=== PATIENT | female | born 1945 | race Caucasian/White ===

== ENCOUNTER → 2016-08-29 | Outpatient (CLI) | payer OTHER ==
[~2016-08-29] MED LIST: ASPI81TA28 PO; CALC500C70 PO; CRS20 PO; EZET10TA63 PO; LEVO200T6 PO; METF-384 PO
[2016-08-29 11:09] LABS: HEMATOCRIT 40.6 % (37-47); MEAN CELL VOLUME 91.2 fL (80-100); MEAN CORPUSCULAR HEMOGLOBIN 30.6 pg (25-34); MEAN CORPUSCULAR HGB CONC 33.5 g/dl (32-36); MEAN PLATELET VOLUME 10.2 fL (7.4-10.4); PLATELET COUNT 235 K/uL (130-400); RED BLOOD COUNT 4.45 M/uL (4.2-5.4); WHITE BLOOD COUNT 6.92 K/uL (4.8-10.8)
[2016-08-29 11:21] LABS: ESTIMATED AVERAGE GLUCOSE 143 mg/dl; HA1C FLAG Normal (Normal)
[2016-08-29 11:43] LABS: ALB/GLOB RATIO 1.1 (0.9-2); ALT/SGPT 39 U/L (12-78); BLOOD UREA NITROGEN 16 mg/dl (7-18); BUN/CREATININE RATIO 17.4 (10-20); CALCIUM 9.6 mg/dl (8.5-10.1); CARBON DIOXIDE 29 mmol/L (21-32); CHLORIDE 104 mmol/L (98-107); CREATININE 0.89 mg/dl (0.60-1.20); GLUCOSE 105 mg/dl (70-99); POTASSIUM 3.9 mmol/L (3.5-5.1); SODIUM 141 mmol/L (136-145); TRIGLYCERIDES 217 mg/dl (0-150); VERY LOW DENSITY LIPOPROT CALC 43 mg/dl
[2016-08-29 11:52] LABS: ALKALINE PHOSPHATASE 52 U/L (45-117); AST/SGOT 32 U/L (15-37); CHOLESTEROL 140 mg/dl (0-200); CHOLESTEROL/HDL RATIO 2.3; HDL CHOLESTEROL 62 mg/dl; LDL CHOLESTEROL CALCULATED 35 mg/dl
== END | disposition home or self-care (01) ==
LOC: C.LAB 10:25
PROVIDERS: ATTEND Family Medicine
DX: E78.00 Pure hypercholesterolemia, unspecified (principal); I10 Essential (primary) hypertension; E11.9 Type 2 diabetes mellitus without complications; E03.9 Hypothyroidism, unspecified

== ENCOUNTER → 2016-09-21 | Outpatient (CLI) | payer OTHER ==
--- NOTE | 2016-09-26 07:32 | CODING QUERY MEDICAL NECESSITY ---
SUPPORTING DIAGNOSIS NEEDED A supporting diagnosis is required for the test/procedure performed on this patient in order for us to be reimbursed by the patient's insurance. Please provide a supporting diagnosis for the following test/procedure listed below next to the test name along with your signature. *If there is no additional diagnosis for this patient that would support the following test/procedure please document that below next to the test/procedure. Test(s)/Procedure(s) that require a supporting diagnosis: * DXA BONE DENSITY DIAGNOSIS: * DOS: 09/21/16 Provider Signature: Date: Thank you Shea Roberto Health Information Management Once completed, please kindly fax back to [phone] For questions please call [phone]
== END | disposition home or self-care (01) ==
LOC: C.MAMM 09:31
PROVIDERS: ATTEND Family Medicine
DX: Z13.820 Encounter for screening for osteoporosis (principal); M85.851 Other specified disorders of bone density and structure, right thigh

== ENCOUNTER → 2017-04-03 | Outpatient (CLI) | payer OTHER ==
[2017-04-03 10:55] LABS: ESTIMATED AVERAGE GLUCOSE 157 mg/dl; HA1C FLAG Normal (Normal)
[2017-04-03 10:58] LABS: ALT/SGPT 61 U/L (12-78); BLOOD UREA NITROGEN 18 mg/dl (7-18); BUN/CREATININE RATIO 20.7 (10-20); CALCIUM 9.9 mg/dl (8.5-10.1); CARBON DIOXIDE 31 mmol/L (21-32); CHLORIDE 106 mmol/L (98-107); CREATININE 0.85 mg/dl (0.60-1.20); GLUCOSE 111 mg/dl (70-99); POTASSIUM 3.9 mmol/L (3.5-5.1); SODIUM 140 mmol/L (136-145)
[2017-04-03 11:09] LABS: CHOLESTEROL 115 mg/dl (0-200); CHOLESTEROL/HDL RATIO 2.7; HDL CHOLESTEROL 43 mg/dl; LDL CHOLESTEROL CALCULATED 36 mg/dl; THYROID STIMULATING HORMONE 0.145 uIu/ml (0.300-4.500); TRIGLYCERIDES 182 mg/dl (0-150); VERY LOW DENSITY LIPOPROT CALC 36 mg/dl
== END | disposition home or self-care (01) ==
LOC: C.LAB 09:45
PROVIDERS: ATTEND Family Medicine
DX: E78.00 Pure hypercholesterolemia, unspecified (principal); I10 Essential (primary) hypertension; E11.9 Type 2 diabetes mellitus without complications; E03.9 Hypothyroidism, unspecified

== ENCOUNTER → 2017-04-30 | Outpatient (CLI) | payer OTHER ==
--- NOTE | 2017-04-30 13:10 | MAMMOGRAPHY REPORT ---
BILATERAL DIGITAL DIAGNOSTIC MAMMOGRAM TOMOSYNTHESIS WITH CAD AND TARGETED LEFT ULTRASOUND: 04/30/2017 CLINICAL HISTORY: 71-year-old woman presents for bilateral mammography. She has also been experienci ng sensation in the left breast beginning February or March 2017. It is an occasional twinge or jabbing sensation in the upper outer anterior left breast. No palpable lump. No persistent nipple discharg e. Patient consulted with Dr. Herndon after her benign biopsies and left nipple discharge which she has not had since prior to the biopsies. TECHNIQUE: Bilateral breast tomosynthesis in addition to standard 2D mammography was performed. Curre nt study was also evaluated with a Computer Aided Detection (CAD) system. COMPARISON: Comparison is made to exams dated: 03/21/2016 mammogram, 03/21/2016 ultrasound biopsy, 016 ultrasound, 04/20/2015 mammogram, 03/15/2016 mammogram, and 04/16/2014 mammogram - [facility]. BREAST COMPOSITION: There are scattered areas of fibroglandular density in both breasts. FINDINGS: A square shaped pain marker overlies the upper outer anterior left breast, denoting the abn ormal sensation pointed out by the patient. There are 2 stable metallic biopsy markers in the left b reast. The wing-shaped biopsy marker located in the approximate 3:00 anterior left breast is in the area near the pain marker, and could possibly be the underlying cause of the patient's abnormal sensa tion, as occasionally patients can experience pain months to years after biopsy. However, there is n o evidence of a new suspicious mass, unexpected area of architectural distortion, developing asymmetr y or suspicious microcalcifications in either breast. There is a stable benign-appearing subcentimet er mass in the right upper outer quadrant. Targeted ultrasound was performed in the area of abnormal sensation pointed out by the patient within the 1:00 periareolar left breast. Sonographically normal tissue is seen without a suspicious solid or cystic mass. IMPRESSION: ACR BI-RADS CATEGORY 2: BENIGN, TARGETED ULTRASOUND ACR BI-RADS CATEGORY 2: BENIGN 1. There is no suspicious mammographic or targeted sonographic abnormality in the area of abnormal s ensation within the left 1:00 breast, which was pointed out by the patient. The wing-shaped biopsy m arker clip is located somewhat near this area of pain and it is unclear if the prior biopsy in the 3: 00 breast could still be causing pain one year later. Nevertheless, continued monitoring and clinica l follow-up is recommended. Otherwise would recommend routine screening in 1 year. 2. There are otherwise stable post biopsy changes and stable mammographic appearance of the left raji ast. Given that the patient has not had any other episodes of nipple discharge since prior to the bi opsies 1 year ago, that finding is most likely benign. However, continued clinical follow-up is lilian mmended and if the patient has episodes of nipple discharge again, repeat surgical consultation may b e needed. 3. Stable mammographic appearance of the right breast, without mammographic evidence of malignancy. Recommend routine mammography in one year. These results and recommendations were discussed with the patient at the time of the exam. Approximately 10% of breast cancers are not detected with mammography. A negative mammographic report should not delay biopsy if a clinically suggestive mass is present. Evelyn Man M.D. ay/:04/30/2017 11:26:37 Band Tier: Rosetta HAWKINS)(Juanpablo), [facility] letter sent: Normal 1/2 BI-RADS Code: ACR BI-RADS Category 2: Benign Ultrasound BI-RADS: ACR BI-RADS Category 2: Benign
== END | disposition home or self-care (01) ==
LOC: C.MAMM 10:07
PROVIDERS: ATTEND Family Medicine
DX: N64.4 Mastodynia (principal)

== ENCOUNTER → 2017-09-20 | Outpatient (CLI) | payer OTHER ==
[2017-09-20 12:26] LABS: HEMOGLOBIN A1C 6.8 % (4.5-5.6)
== END | disposition home or self-care (01) ==
LOC: C.LAB 10:11
PROVIDERS: ATTEND Family Medicine
DX: E78.00 Pure hypercholesterolemia, unspecified (principal); I10 Essential (primary) hypertension; E11.9 Type 2 diabetes mellitus without complications; E03.9 Hypothyroidism, unspecified

== ENCOUNTER → 2017-11-28 | Outpatient (CLI) | payer OTHER ==
[2017-11-28 13:14] LABS: BASO % 0.6 %; BASO ABS # 0.04 K/uL (0-0.2); EOS ABS # 0.72 K/uL (0-0.5); HEMATOCRIT 36.2 % (37-47); HEMOGLOBIN 12.1 g/dL (12.0-16.0); IG# 0.01 K/uL (0.00-0.02); LYMPH % 40.9 %; LYMPH ABS # 2.67 K/uL (1.2-3.4); MEAN CELL VOLUME 91.4 fL (80-100); MEAN CORPUSCULAR HEMOGLOBIN 30.6 pg (25-34); MEAN CORPUSCULAR HGB CONC 33.4 g/dl (32-36); MEAN PLATELET VOLUME 10.4 fL (7.4-10.4); MONO % 8.9 %; MONO ABS # 0.58 K/uL (0.11-0.59); NEUT % 38.4 %; NEUT ABS # 2.51 K/uL (1.4-6.5); PLATELET COUNT 254 K/uL (130-400); RED CELL DISTRIBUTION WIDTH CV 13.5 % (11.5-14.5); RED CELL DISTRIBUTION WIDTH SD 44.8 fL (36.4-46.3); WHITE BLOOD COUNT 6.53 K/uL (4.8-10.8)
[2017-11-28 13:44] LABS: ALBUMIN 3.7 gm/dl (3.4-5.0); ALT/SGPT 24 U/L (12-78); AST/SGOT 21 U/L (15-37); BLOOD UREA NITROGEN 19 mg/dl (7-18); CALCIUM 9.7 mg/dl (8.5-10.1); CARBON DIOXIDE 27 mmol/L (21-32); CREATININE 0.92 mg/dl (0.60-1.20); GLUCOSE 98 mg/dl (70-99); POTASSIUM 3.6 mmol/L (3.5-5.1); SODIUM 139 mmol/L (136-145)
[2017-11-28 13:54] LABS: ALKALINE PHOSPHATASE 47 U/L (45-117); TOTAL PROTEIN 6.9 gm/dl (6.4-8.2)
== END | disposition home or self-care (01) ==
LOC: C.LAB1850 12:22
PROVIDERS: ATTEND Nurse Practitioner Family
DX: R07.89 Other chest pain (principal)

== ENCOUNTER → 2018-03-27 | Outpatient (CLI) | payer OTHER ==
[2018-03-27 10:47] LABS: CREATININE RANDOM URINE 83.1 mg/dl
[2018-03-27 10:56] LABS: ALT/SGPT 25 U/L (12-78); BLOOD UREA NITROGEN 18 mg/dl (7-18); CALCIUM 9.5 mg/dl (8.5-10.1); CARBON DIOXIDE 28 mmol/L (21-32); CHOLESTEROL 121 mg/dl (0-200); CREATININE 0.99 mg/dl (0.60-1.20); GLUCOSE 106 mg/dl (70-99); LDL CHOLESTEROL CALCULATED 32 mg/dl; POTASSIUM 3.8 mmol/L (3.5-5.1); SODIUM 139 mmol/L (136-145)
== END | disposition home or self-care (01) ==
LOC: C.LAB 08:57
PROVIDERS: ATTEND Family Medicine
DX: I10 Essential (primary) hypertension (principal); E11.9 Type 2 diabetes mellitus without complications; E03.9 Hypothyroidism, unspecified

== ENCOUNTER 2019-12-29 11:43 | Observation (INO) ==
[2019-12-29 12:27] LABS: Basophils # (auto) 0.02 K/uL (0-0.2); Basophils % (auto) 0.3 %; Eosinophils % (auto) 7.6 %; Hematocrit (blood only) 40.9 % (37-47); Hemoglobin 13.3 g/dL (12.0-16.0); Immature Granulocytes # (auto) 0.02 K/uL (0.00-0.02); Immature Granulocytes % (auto) 0.3 %; Mean Corpuscular Hemoglobin 29.5 pg (25-34); Mean Corpuscular Hgb Conc 32.5 g/dL (32-36); Mean Corpuscular Volume 90.7 fL (80-100); Mean Platelet Volume 10.5 fL (7.4-10.4); Monocytes # (auto) 0.84 K/uL (0.11-0.59); Monocytes % (auto) 10.6 %; Neutrophils # (auto) 3.41 K/uL (1.4-6.5); Neutrophils % (auto) 43.2 %; Platelet Count 293 K/uL (130-400); RDW Coefficient of Variation 14.3 % (11.5-14.5); RDW Standard Deviation 47.5 fL (36.4-46.3); Red Blood Count 4.51 M/uL (4.2-5.4); White Blood Count 7.89 K/uL (4.8-10.8)
[2019-12-29] MEDS ORDERED: ASPIRIN CHEW 324 MG PO STA (12:30)
[2019-12-29 12:34] LABS: Albumin Level 3.7 gm/dl (3.4-5.0); Aspartate Aminotransferase 33 U/L (15-37); BUN Creatinine Ratio 17.3 (10-20); Blood Urea Nitrogen 17 mg/dl (7-18); Calcium 10.4 mg/dl (8.5-10.1); Carbon Dioxide 27 mmol/L (21-32); Chloride 104 mmol/L (98-107); Creatinine Clr Calc Pharmacy 54.8 ml/min; Est GFR (Non-African American) 58.7; Glucose 118 mg/dl (70-99); Potassium 3.7 mmol/L (3.5-5.1); Sodium 140 mmol/L (136-145)
[2019-12-29 12:35] LABS: Partial Thromboplastin Ratio 0.9; Partial Thromboplastin Time 24.4 Seconds (21.0-31.0); Prothrombin Time 10.8 Seconds (9.0-12.0)
--- NOTE | 2019-12-29 12:36 | Emergency Department Note ---
History of Present Illness General Chief complaint: Chest Pain Stated complaint: CHEST PAIN Time Seen by Provider: 12/29/19 12:15 Source: patient Mode of arrival: ambulatory Limitations: no limitations History of Present Illness This patient comes in after having intermittent chest pain since 5:00 in the morning it woke her up. Is been a low level about 1 or 2 out of 10 and she describes as a twinge mostly in her left side it did seem to move to the central chest. There is no radiation to the arm neck or back. No diaphoresis or nausea or shortness of breath. It is not pleuritic. She is had no injury. She was moving some stuff over the weekend but had no fall or trauma. It is not worse with movement. She has had no known COVID exposure no fever or cough with exception of some chronic sinus issues that she has been dealing with for over 6 months. No history of any similar chest pain. No pain or swelling her legs. No history of blood clots. No nausea vomiting or diarrhea. No blood or melena stool. She does take a baby aspirin and took 81 mg today. She is never had a cardiac work-up Home Medications Home Medications Medication Instructions Recorded Confirmed Type aspirin 81 mg tablet,delayed 81 mg PO QAM 04/21/19 12/29/19 History release docusate sodium 100 mg PO HS 04/23/19 12/29/19 History ezetimibe 10 mg tablet 10 mg PO QAM #90 tab 07/17/19 12/29/19 Rx metformin 1,000 mg tablet 1,000 mg PO BID 90 Days #180 tab 07/17/19 12/29/19 Rx rosuvastatin 20 mg tablet 20 mg PO QAM #90 tab 07/17/19 12/29/19 Rx clobetasol 0.05 % topical ointment 1 appln TOP DAILY PRN #15 gm 07/18/19 12/29/19 Rx levothyroxine 150 mcg tablet 75 - 150 mcg PO DAILY #72 tab 10/10/19 12/29/19 Rx amlodipine 5 mg PO QAM 12/29/19 12/29/19 History hydrochlorothiazide 25 mg PO QAM 12/29/19 12/29/19 History Allergies Allergy/AdvReac Type Severity Reaction Status Date / Time Sulfa (Sulfonamide Allergy Severe rash that Verified 12/29/19 15:30 Antibiotics) went into throat Past Med/Surg History Medical History Chronic pain Diabetes mellitus, type 2 History of colon polyps Hypercholesterolemia Hyperlipidemia Hypertension Hypothyroidism Obstructive sleep apnea Osteoarthritis Rosacea Urinary incontinence Surgical History History of colonoscopy History of left breast biopsy benign History of open reduction and internal fixation (ORIF) procedure left leg/ankle--hardware in place History of tonsillectomy History of wisdom tooth extraction Family History Mother Family hx of colon cancer Colorectal cancer Aunt Family hx of colon cancer Sister Breast cancer Father Myocardial infarction Other No family history of adverse response to anesthesia Denies family history of Ovarian cancer Prostate cancer Social History (Updated 12/29/19 @ 14:37 by Aster Nieto DO) Preferred Language: Monegasque Communication Ability: Effective Shipping Technician Required: No Beliefs That Will Affect Care: Hindu Hindu Beliefs: Nondenominational Current Living Situation: Alone Other Information That Helps Us Care for You: No Feels Safe at Home: Yes Safety Concerns: Feels Safe At This Time Smoking Status: Never smoker Second Hand Exposure: Yes (father smoked/1st smoked) ; Hx Alcohol Use: Yes Alcohol type: wine Alcohol Intake Frequency Comment: socially, once a month or less Hx Substance Use: No Review of Systems A total of 10 systems reviewed and were otherwise negative Physical Exam Vital Signs Vital Signs - 24 hr 12/29/19 11:48 12/29/19 13:27 12/29/19 14:02 Temperature 36.7 C Temperature Source Oral Pulse Rate 86 Pulse Rate [Apical] 77 77 Pulse Rhythm [Apical] Regular Regular Respiratory Rate 20 18 17 Respiratory Effort / Characteristics Non-Labored Spontaneous Non-Labored Spontaneous Non-Labored Spontaneous Respiratory Depth Normal Normal Normal Respiratory Pattern Regular Regular Regular Blood Pressure 190/90 H Blood Pressure [Right Arm] 138/102 H 154/96 H Blood Pressure Mean 123 Blood Pressure Mean [Right Arm] 114 115 Pulse Oximetry 96 96 95 Oxygen Delivery Method Room Air Room Air Room Air Sepsis Recent Fever Within 48 Hours No Sepsis Action Taken by Nursing No Action Required General: Well developed well nourished [id number]-[id number] older female who appears in no acute distress, breathing comfortably on room air. Normal speech HEENT: Normal cephalic atraumatic. Pupils are equal round and reactive to light. Extraocular movements are intact. Oropharynx is pink with moist mucous membranes. No swelling of the mouth lips or tongue. Neck: Supple with a midline trachea. No meningeal signs or stiffness, no JVD or bruits. No Stridor. Chest: Clear to auscultation bilaterally. No wheezes or rhonchi. No increased work of breathing. Not reproducibly tender Heart: Regular rate and rhythm without murmurs or gallops. Abdomen: Soft nontender, nondistended without rebound guarding or rigidity. Extremities: No cyanosis clubbing or edema. No calf tenderness or assymetry Spine/Back. Non tender to palpation. No CVA tenderness Skin: Good turgor without rashes. Neurologic exam: Cranial nerves two through 12 are intact. Motor and sensation are intact and symmetrical throughout. Course Administered Medications Insulin Aspart (Novolog Flexpen) 0 units SC ACHS KYLER Stop: 01/28/20 16:29 Last Admin: 12/29/19 17:11 Dose: 4 units Documented by: [id number] Cosigned by: [id number] Discontinued Medications Aspirin (Aspirin) 324 mg PO NOW STA Stop: 12/29/19 12:31 Last Admin: 12/29/19 12:33 Dose: 324 mg Documented by: [id number] Medical Decision Making Differential Diagnosis Acute coronary syndrome, musculoskeletal, arrhythmia, PE, aortic pathology, electrolyte or metabolic abnormality, anxiety, CHF, infection Medical Records Attestation: I reviewed the patient's medical records. Home Medications Current Medication List: was personally reviewed by me Laboratory Data Attestation: I reviewed the patient's lab results. Result diagrams: 12/29/19 12:00 12/29/19 12:00 Lab Results 12/29/19 12/29/19 12/29/19 Range/Units 12:00 12:00 12:00 WBC 7.89 (4.8-10.8) K/uL RBC 4.51 (4.2-5.4) M/uL Hgb 13.3 (12.0-16.0) g/dL Hct 40.9 (37-47) % MCV 90.7 (80-100) fL MCH 29.5 (25-34) pg MCHC 32.5 (32-36) g/dL RDW Std Deviation 47.5 H (36.4-46.3) fL RDW Coeff of Ina 14.3 (11.5-14.5) % Plt Count 293 (130-400) K/uL MPV 10.5 H (7.4-10.4) fL Immature Gran % (Auto) 0.3 % Neut % (Auto) 43.2 % Lymph % (Auto) 38.0 % Cecil % (Auto) 10.6 % Eos % (Auto) 7.6 % Baso % (Auto) 0.3 % Immature Gran # (Auto) 0.02 (0.00-0.02) K/uL Neut # (Auto) 3.41 (1.4-6.5) K/uL Lymph # (Auto) 3.00 (1.2-3.4) K/uL Cecil # (Auto) 0.84 H (0.11-0.59) K/uL Eos # (Auto) 0.60 H (0-0.5) K/uL Baso # (Auto) 0.02 (0-0.2) K/uL PT 10.8 (9.0-12.0) Seconds INR 1.0 (0.9-1.1) APTT 24.4 (21.0-31.0) Seconds PTT Ratio 0.9 Sodium 140 (136-145) mmol/L Potassium 3.7 (3.5-5.1) mmol/L Chloride 104 (98-107) mmol/L Carbon Dioxide 27 (21-32) mmol/L Anion Gap 9.0 (3-11) BUN 17 (7-18) mg/dl Creatinine 0.96 (0.6-1.2) mg/dl Est Cr Clr Drug Dosing 54.8 ml/min Est GFR ( Amer) 68.0 Est GFR (Non-Af Amer) 58.7 BUN/Creatinine Ratio 17.3 (10-20) Glucose 118 H (70-99) mg/dl Calcium 10.4 H (8.5-10.1) mg/dl Total Bilirubin 0.4 (0.2-1) mg/dl AST 33 (15-37) U/L ALT 37 (12-78) U/L Alkaline Phosphatase 72 (45-117) U/L Troponin I < 0.015 (0-0.045) ng/ml Total Protein 7.6 (6.4-8.2) gm/dl Albumin 3.7 (3.4-5.0) gm/dl Globulin 3.9 (2.5-4.0) gm/dl Albumin/Globulin Ratio 0.9 (0.9-2) Imaging Data Radiologist's Impression: Chest x-ray:No acute cardiopulmonary findings. ECG Data Attestation: I personally reviewed and interpreted this ECG as follows: Indication: + chest pain Rate (beats per minute): 86 Rhythm: + normal sinus ECG Intervals/blocks: + Normal QRS, + Normal QT and + Normal SC ECG Eden: + Normal ECG Findings: no PACs and no PVCs Comparison ECG Date: from (11/01/06) Change: no significant change Blood Pressure Blood Pressure Findings: Elevated blood pressure Blood Pressure Disposition: elevated BP felt to be situational MDM Narrative This patient comes in as scribed above she has had intermittent low-grade chest pain since this morning. She was placed on a electronic device monitor in room C8. She does have several cardiac risk factors, namely diabetes, hypertension, hypercholesteremia, family history. She has never had a cardiac work-up or cardiac problems personally. She is pain-free initially when I saw her. She did take a baby aspirin earlier today I did order a full-strength aspirin. Her father did have an aneurysm her symptoms do not sound typical for aneurysm thus far. An extensive cardiac work-up was ordered. Her initial EKG does not show anything to suggest acute coronary syndrome or significant arrhythmia. She was reassessed frequently. She remained stable. Her troponin was negative. Chest x-ray was unremarkable. She has no significant electrolyte or metabolic abnormalities. She has nothing to suggest liver, gallbladder, or pancreas disease. I do think she should be observed in the hospital for further cardiac work-up and to rule out acute coronary syndrome. I did consult the hospitalist for these measures Continuous cardiac monitoring: Due to her chief complaint of chest pain an order was placed for continuous cardiac monitoring. The patient was noted to be in normal sinus rhythm with a rate of 86 upon my evaluation. Impression & Plan Chest pain Discharge Plan Visit Data *Final* Discharge Date/Time: 12/29/19 15:15 Chief Complaint: Chest Pain Stated Complaint: CHEST PAIN ED Provider: Irving Piña Discharge Problem: Chest pain Patient Disposition: Admitted As Inpatient Discharge Instructions Interventions: ED Discharge Assessment Last Done: 12/29/19 15:15 Discharge Problem: Chest pain Qualifiers: Chest pain type: precordial pain Qualified Code(s): R07.2 - Precordial pain
[2019-12-29 12:38] LABS: Alanine Aminotransferase 37 U/L (12-78); Albumin Globulin Ratio 0.9 (0.9-2); Alkaline Phosphatase 72 U/L (45-117); Bilirubin,Total 0.4 mg/dl (0.2-1); Globulin 3.9 gm/dl (2.5-4.0); Total Protein 7.6 gm/dl (6.4-8.2); Troponin I < 0.015 ng/ml (0-0.045)
--- NOTE | 2019-12-29 12:41 | XRay Report ---
XR chest 1V portable CLINICAL HISTORY: Chest pain. COMPARISON STUDY: Chest radiograph May 27, 2019. FINDINGS: Lung volumes are normal. Minimal left basilar opacity favors atelectasis. There is no pneum othorax or pleural effusion. Cardiac size is normal. Mediastinal contours are normal. There is no mj dence for pulmonary edema. IMPRESSION: No acute cardiopulmonary findings. ACT 112: Negative or not required by law. Electronically signed by: Harinder Sawyer M.D. 12/29/2019 12:40 PM
--- NOTE | 2019-12-29 14:45 | History & Physical Report ---
Date of Service December 29, 2019 Assessment & Plan (1) Chest pain: Uncertain etiology, r/o ACS vs GI EKG WNL CXR: neg for acute Trop neg x1, serials pending GI cocktail PRN If trops neg, t/c stress ECHO in AM Lipids pending CBC, PRP WNL GI cocktail PRN (2) Hypercholesterolemia: continue home meds Lipids pending (3) Persistent cough: continue home meds (4) Hypothyroidism: continue home meds (5) Hypertension: continue home meds (6) Diabetes mellitus: Holding metformin in case of need for cath SSI PRN A1c pending, last was 7.1 07/14/19 (7) GERD (gastroesophageal reflux disease): continue home meds (8) Obstructive sleep apnea: States that this is not a current dx Pt had testing done due to snoring when she had a "bad cold", but it was neg (9) DVT prophylaxis: Ambulation given likely short duration of admission History of Present Illness Chief Complaint: 74 y/o F c/o chest pain. Pt states she was up last night watching her usual Sunday night television shows until around 1am, which is not atypical for her. She states she went to bed and felt fine at that time. She was sleeping soundly when she was woken with L sided chest pain under her breast around 5a. It felt more pulsating and irritating in nature. It would come and go. She tried to go back to sleep, but this pain continued to come and go, so she decided to just go ahead and get up for the day. This pain continued to come and go while she was reading her paper, and then around 10:45, the pain moved to mid-sternum. This made her more concerned, so she came to the ED for further eval. Pt had no other sx with this. Pt denies fever, SOB, abd pain, n/v/c/d, LE pain or swelling. She has never had chest pain before. Pt states that yesterday was a usual day for her. She did all of her usual activities without any issue. She states that she does have heartburn issues. She used to take ranitidine, but this was changed to famotidine in September due to the new risk associated with ranitidine. She feels that this medication was just as effective as the prior. She had dinner around 7:30, ham, sweet potatoes. She states she did have chips and dip and chocolate milk around 9:30-10:00. Chips do sometimes cause her heartburn, so she was sure to take her GERD medication prior to eating them. She did not notice any issues prior to bed. Pt states that she has been working with several doctors since April for some sort of cold/sinus issues. She started working with pul this spring after nothing was resolving her sinus headaches. She was advised to take sudafed Q12hr PRN for this. She did have a mild sinus headache this AM and did take the sudafed. She has a referral for ENT, but has not had that appt yet. Pt took all of her AM meds today with the exception of metformin. She did not take this because she had not eaten yet and if she takes it and does not eat, she gets nauseated. Primary Care Provider: Brianda Obrien MD Allergies Allergy/AdvReac Type Severity Reaction Status Date / Time Sulfa (Sulfonamide Allergy Severe rash that Verified 12/29/19 14:28 Antibiotics) went into throat Home Medications Home Medications Medication Instructions Recorded Confirmed Type aspirin 81 mg tablet,delayed 81 mg PO QAM 04/21/19 10/23/19 History release ranitidine HCl 150 mg tablet 150 mg PO BID PRN 04/21/19 10/23/19 History docusate sodium 100 mg PO HS 04/23/19 10/23/19 History promethazine 6.25 mg-codeine 10 5 ml PO Q6H PRN #120 ml 05/27/19 10/23/19 Rx mg/5 mL syrup chlorpheniramine maleate 4 mg 4 mg PO Q12H PRN #60 tab 06/10/19 10/23/19 Rx tablet fluticasone propionate 50 2 sprays INTNAS DAILY #15.8 gm 06/10/19 10/23/19 Rx mcg/actuation nasal spray,suspension pseudoephedrine HCl 120 mg 120 mg PO Q12H #60 tab 06/10/19 10/23/19 Rx tablet,extended release ezetimibe 10 mg tablet 10 mg PO QAM #90 tab 07/17/19 10/23/19 Rx hydrochlorothiazide 25 mg tablet 25 mg PO DAILY #90 tab 07/17/19 10/23/19 Rx metformin 1,000 mg tablet 1,000 mg PO BID 90 Days #180 tab 07/17/19 10/23/19 Rx rosuvastatin 20 mg tablet 20 mg PO QAM #90 tab 07/17/19 10/23/19 Rx clobetasol 0.05 % topical ointment 1 appln TOP DAILY PRN #15 gm 07/18/19 10/23/19 Rx amlodipine 5 mg tablet 5 mg PO DAILY #90 tab 08/15/19 10/23/19 Rx levothyroxine 150 mcg tablet 75 - 150 mcg PO DAILY #72 tab 10/10/19 10/23/19 Rx Past Med/Surg History Medical History Chronic pain Diabetes mellitus, type 2 History of colon polyps Hypercholesterolemia Hyperlipidemia Hypertension Hypothyroidism Obstructive sleep apnea Osteoarthritis Rosacea Urinary incontinence Surgical History History of colonoscopy History of left breast biopsy benign History of open reduction and internal fixation (ORIF) procedure left leg/ankle--hardware in place History of tonsillectomy History of wisdom tooth extraction Family History Mother Family hx of colon cancer Colorectal cancer Aunt Family hx of colon cancer Sister Breast cancer Father Myocardial infarction Other No family history of adverse response to anesthesia Denies family history of Ovarian cancer Prostate cancer Social History (Updated 12/29/19 @ 14:37 by Aster Nieto DO) Preferred Language: Macedonian Communication Ability: Effective 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 Beliefs That Will Affect Care: None Current Living Situation: Alone Feels Safe at Home: Yes Smoking Status: Never smoker Second Hand Exposure: Yes (father smoked/1st smoked) ; Hx Alcohol Use: Yes Alcohol type: beer, wine and hard liquor Alcohol Intake Frequency Comment: socially, once a month or less Hx Substance Use: No Review of Systems Review of Systems: Pertinent positives and negatives reviewed in HPI--all others negative Physical Exam Constitutional: WD/WN, vitals as above Eyes: normal visual palencia by confrontation and + anicteric sclerae Neck: normal visual inspection and trachea midline Respiratory: normal respiratory effort, lungs clear to auscultation Cardiovascular: Rate/Rhythm: regular rate and regular rhythm Gastrointestinal (Abdomen): Inspection/Auscultation: + abdomen distended Percussion/Palpation: abdomen soft; abdomen nontender Musculoskeletal: Head/Neck/Chest: normocephalic and head atraumatic negative for edema, peripheral pulses intact Skin: no rashes, warm and dry Neurologic: awake; not confused Speech / Cognition: normal speech Psychiatric: A+Ox3, euthymic affect Results & Data Results & Data ([facility]) Vital Signs (Past 12 Hours) Vital Signs Temp Pulse Pulse Resp BP BP Pulse Ox 12/29/19 14:02 77 17 154/96 H 95 12/29/19 13:27 77 18 138/102 H 96 12/29/19 11:48 36.7 C 86 20 190/90 H 96 Diagnostic Findings CXR: neg for acute ECG Rhythm: normal sinus Code Status & VTE Plan Code Status Full code VTE Prophylaxis Plan VTE Prophylaxis will be ordered: Yes PG Care Time/CCT Total # of Minutes Spent Total Time Spent with Patient: Total time spent is greater than 50% in coordination of care (as documented) at patient's floor/unit and/or counseling patient: Coding Level of Care Code 03807 OBS Care - Level 3 Diagnoses Chest pain R07.2 Chest pain type: precordial pain Hypercholesterolemia E78.00 Persistent cough R05 Hypothyroidism E03.9 Hypertension I10 Diabetes mellitus E11.9 GERD (gastroesophageal reflux disease) K21.9 Obstructive sleep apnea G47.33 DVT prophylaxis Z29.9 (1) Chest pain Chest pain type: precordial pain Qualified Code(s): R07.2 - Precordial pain
[2019-12-29] MEDS ORDERED: GLUCOSE 40% GEL 15 GM TUBE PO PRN (16:20)
[2019-12-29] MEDS ORDERED: DEXTROSE 50% 50 ML SYRINGE IV PRN (16:20)
[2019-12-29] MEDS ORDERED: ALUMINUM/MAGNESIUM SUSP 18 ML, LIDOCAINE HCL VISCOUS 2% 6 ML, BARCODE IDENTIFIER 1 EA PO PRN (16:20)
[2019-12-29] MEDS ORDERED: GLUCAGON FOR INJ 1 MG VIAL SQ PRN (16:20)
[2019-12-29] MEDS ORDERED: MAGNESIUM HYDROXIDE SUSP 30 ML UDC PO PRN (16:20)
[2019-12-29] MEDS ORDERED: CLOBETASOL PROPIONATE 0.05% OINT 15 GM TUBE EXT PRN (16:20)
[2019-12-29] MEDS ORDERED: ONDANSETRON INJ 2 MG/ML 2 ML VIAL IV PRN (16:20)
[2019-12-29] MEDS ORDERED: PROMETHAZINE CODEINE PO PRN (16:20)
[2019-12-29] MEDS ORDERED: ACETAMINOPHEN 325 MG TAB PO PRN (16:20)
[2019-12-29] MEDS ORDERED: CARBOHYDRATES FOR HYPOGLYCEMIA PO PRN (16:20)
[2019-12-29] MEDS ORDERED: GLUCOSE 10 TABS/TUBE PO PRN (16:20)
[2019-12-29] MEDS ORDERED: PSEUDOEPHEDRINE HCL 30 MG TAB PO PRN (16:20)
--- NOTE | 2019-12-29 17:00 | Electrocardiogram Report ---
Test Reason : Blood Pressure : / mmHG Vent. Rate : 086 BPM Atrial Rate : 086 BPM P-R Int : 158 ms QRS Dur : 084 ms QT Int : 368 ms P-R-T Axes : 053 009 039 degrees QTc Int : 440 ms Normal sinus rhythm Normal ECG When compared with ECG of 01-NOV-2006 15:46, Vent. rate has increased BY 30 BPM Confirmed by Dimitry Buchanan ([id number]) on 12/29/2019 4:59:46 PM Referred By: Confirmed By:Miguel Buchanan
[2019-12-29] MEDS: INSULIN ASPART 100 UNITS/ML 3 ML PEN SC SCH ×2 (17:11→20:42)
[2019-12-29 18:35] LABS: Chol HDL Ratio 2; Cholesterol 125 mg/dl (0-200); HDL Cholesterol 52 mg/dl; LDL Cholesterol Calculated 36 mg/dl; Triglycerides 185 mg/dl (0-150); Troponin I < 0.015 ng/ml (0-0.045); VLDL Cholesterol 37 mg/dl
[2019-12-29] MEDS ORDERED: FAMOTIDINE 20 MG TAB PO SCH (21:00)
[2019-12-29] MEDS ORDERED: DOCUSATE SODIUM 100 MG CAP PO SCH (21:00)
[2019-12-30] MEDS ORDERED: LEVOTHYROXINE SODIUM 75 MCG TABLET PO SCH (06:30)
[2019-12-30 07:26] LABS: Estimated Average Glucose 148 mg/dl; Hemoglobin A1C 6.8 % (4.5-5.6)
[2019-12-30] MEDS: INSULIN ASPART 100 UNITS/ML 3 ML PEN SC SCH ×2 (08:20→12:23)
[2019-12-30] MEDS ORDERED: AMLODIPINE BESYLATE 5 MG TAB PO SCH (09:00)
[2019-12-30] MEDS ORDERED: hydroCHLOROthiazide 25 MG TAB PO SCH (09:00)
[2019-12-30] MEDS ORDERED: ASPIRIN 81 MG ECTAB PO SCH (09:00)
[2019-12-30] MEDS ORDERED: EZETIMIBE 10 MG TABLET PO SCH (09:00)
[2019-12-30] MEDS ORDERED: ROSUVASTATIN CALCIUM 20 MG TAB PO SCH (09:00)
[2019-12-30] MEDS ORDERED: FLUTICASONE PROPIONATE NA SPR 16 GM BTL NAE SCH (09:00)
--- NOTE | 2019-12-30 11:50 | XCELERA ---
[id number]
--- NOTE | 2019-12-30 14:07 | Discharge Summary ---
Date of Service December 30, 2019 Principal Diagnosis Pt is doing well. She has had no further chest pain since STEAMBLASTER. Pt denies fever, SOB, abd pain, n/v/c/d, LE pain or swelling. Tolerating PO without issue. Discharge Exam Constitutional WD/WN, vitals as above Eyes normal visual palencia by confrontation and + anicteric sclerae Neck normal visual inspection and trachea midline Respiratory normal respiratory effort, lungs clear to auscultation Cardiovascular Rate/Rhythm: regular rate and regular rhythm Extremities: no edema Gastrointestinal (Abdomen) Inspection/Auscultation: + abdomen distended Percussion/Palpation: abdomen soft; abdomen nontender Musculoskeletal Head/Neck/Chest: normocephalic and head atraumatic Skin no rashes, warm and dry Neurologic awake; not confused Speech / Cognition: normal speech Psychiatric A+Ox3, euthymic affect Discharge Data Allergies Allergy/AdvReac Type Severity Reaction Status Date / Time Sulfa (Sulfonamide Allergy Severe rash that Verified 12/29/19 15:30 Antibiotics) went into throat Consultations 12/29/19 13:13 ED Decision to Admit Stat Hospital Course (1) Chest pain: No recurrence of chest pain since STEAMBLASTER EKG WNL CXR: neg for acute Trop neg x3 GI cocktail PRN Stress ECHO neg for ischemia, but note that pt reached max HR prior to recommended length of test Lipids WNL CBC, PRP WNL Possibly related to late night PO intake Advised trial of TUMS or Maalox if sx return, however if not resolving, pt should return for further eval. (2) Hypercholesterolemia: continue home meds Lipids WNL (3) Persistent cough: continue home meds (4) Hypothyroidism: continue home meds (5) Hypertension: continue home meds (6) Diabetes mellitus: Holding metformin in case of need for cath SSI PRN A1c improved at 6.8, last was 7.1 07/14/19 (7) GERD (gastroesophageal reflux disease): continue home meds (8) Obstructive sleep apnea: States that this is not a current dx Pt had testing done due to snoring when she had a "bad cold", but it was neg (9) DVT prophylaxis: Ambulation given likely short duration of admission Total Time Total Time Spent Total Time Spent (In Minutes): >30 Total Time Includes: Examination of the Patient, Discharge Planning, Medication Reconciliation and Other Discharge Plan Discharge Items Patient Disposition: Home - Self-Care Reason For Visit: CHEST PAIN Discharge Diagnosis: chest pain Activity: Resume your previous activity Non-emergency contact: Primary Care Provider Call non-emergency contact if: you have any medication questions and your symptoms worsen Follow-up/Referrals: Brianda Obrien MD [Primary Care Provider] - Diet: Carb Consistent or DM2 Addtl Attending Provider Instructions: You should see your primary care in the next week. You had a stress test during your admission. It was negative, however, as we discussed, that does not guarantee with 100% certainty that the symptoms you were having were not related to your heart. If you symptoms return, you should be seen by your primary care or come back to the hospital for further evaluation. Pending Studies at Discharge: No Stand-Alone Forms: My [facility], Smoking Cessation Medications and DC Order Prescriptions: Continued levothyroxine 150 mcg tablet 75 - 150 mcg PO DAILY Qty: 72 RF: 1 ezetimibe [Zetia] 10 mg tablet 10 mg PO QAM Qty: 90 RF: 3 metformin 1,000 mg tablet 1,000 mg PO BID 90 Days Qty: 180 RF: 3 rosuvastatin 20 mg tablet 20 mg PO QAM Qty: 90 RF: 3 clobetasol 0.05 % ointment 1 appln TOP DAILY PRN (Reason: vaginal dryness) Qty: 15 RF: 5 aspirin [Adult Aspirin Regimen] 81 mg tablet,delayed release (DR/EC) 81 mg PO QAM RF: 0 amlodipine 5 mg tablet 5 mg PO QAM RF: 0 hydrochlorothiazide 25 mg tablet 25 mg PO QAM RF: 0 docusate sodium 100 mg Tablet 100 mg PO HS RF: 0 Discharge Orders: Discharge Order (Routine); Ordered 12/30/19 Ordered By: Aster Shah/Other Patient Handouts: Diabetes Type 2 Managing, Diabetes Meal Planning Admission Data Admit Date/Time: 12/29/19 15:00 Attending Provider: Aster Nieto Admit Provider: Aster Nieto Primary Care Provider: Brianda Obrien Other Providers: Aster Nieto Other Interventions: Discharge Summary Assessment (RN) Last Done: 12/30/19 14:21 DC Date/Time DO NOT enter until pt leaves facility: 12/30/19 14:45 Coding Level of Care Code D/C Day Management >30 mins Diagnoses Chest pain R07.2 Chest pain type: precordial pain Hypercholesterolemia E78.00 Persistent cough R05 Hypothyroidism E03.9 Hypertension I10 Diabetes mellitus E11.9 GERD (gastroesophageal reflux disease) K21.9 Obstructive sleep apnea G47.33 DVT prophylaxis Z29.9
[2019-12-31] MEDS ORDERED: LEVOTHYROXINE SODIUM 150 MCG TABLET PO SCH (06:30)
== END 2019-12-30 14:45 | disposition home or self-care (01) ==
LOC: ED 11:43 → 2N 11:43

== ENCOUNTER 2023-03-25 10:39 | Inpatient (IN) ==
--- NOTE | 2023-03-25 10:50 | Emergency Department Note ---
Impression & Plan Acute CVA (cerebrovascular accident), Left arm weakness ED Provider Note NAME: MARI RAMIREZ AGE: 77 SEX: F : 1945 ARRIVES VIA: Ambulance INFORMANT: Patient ED PROVIDER(S): Kei Garcia DO CHIEF COMPLAINT: left arm weakness HPI: Patient is a 77-year-old female who presents the ER for left arm weakness. She went to bed last night was doing well. When she woke up this morning she was fine. She went to the bathroom around 8:15 in the morning and noticed nothing wrong. When she got up around 9 she noticed that she was having trouble moving her left hand. She is left-hand dominant. She noticed weakness throughout the whole left arm. She denies any headache currently but when this was occurring she did have a headache. She still has the weakness but the headache has abated. She notes some issues with her vision as she is seeing some spots. No chest pain or shortness of breath. No dysuria, urgency, or frequency. No other exacerbating or remitting factors. PAST MEDICAL HISTORY:See Below PAST SURGICAL HISTORY:See Below FAMILY HISTORY:See Below SOCIAL HISTORY:See Below HOME MEDICATIONS:See Below ALLERGIES:See Below VITALS:See Below PHYSICAL EXAMINATION: GENERAL: Sitting up in bed, alert, well appearing, well nourished, no distress, non-toxic EYE EXAM: normal conjunctiva. PERRL and EOM's intact. OROPHARYNX: no exudate, no erythema, lips, buccal mucosa, and tongue normal and mucous membranes are moist NECK: supple, no nuchal rigidity, no adenopathy, non-tender LUNGS: Clear to auscultation. Normal chest wall mechanics HEART: no murmurs, S1 normal and S2 normal ABDOMEN: abdomen soft, non-tender, normo-active bowel sounds, no masses, no rebound or guarding. UPPER EXTREMITIES: upper extremities are grossly normal. LOWER EXTREMITIES: No pitting edema. NEURO EXAM: Normal sensorium, cranial nerves II-XII intact, normal speech, weakness with grass of left hand as well as flexion extension of the shoulder and elbow 4 out of 5. No weakness in the entire right side, no weakness of legs. No drift. Finger to nose intact. Gross sensation intact. MEDICAL DECISION MAKING: Patient is a 77-year-old female who presents to the ER for weakness in her left arm which started this morning at some point after 8:15 AM. IV was established blood work was obtained. Labs showed no significant leukocytosis or anemia. INR unremarkable. BMP was unremarkable with exception of slightly elevated calcium at 10.5. Bilirubin LFTs and troponin was negative. EMS did not call him and consequently stroke alert was not called into the patient arrived and evaluate the patient at bedside. CT angios of the head and neck were negative and they were delayed which consequently delayed TNK. Did give TNK after discussion with telestroke neurologist and the telestroke neurologist evaluated the patient. About an hour after receiving TNK patient was already evaluated by the hospitalist and having worsening left arm weakness and consequently CT was o btained. I discussed with Dr. Alberts and he noted that the imaging was negative with contrast in the sinuses. Patient was updated bedside and admitted for further work-up management and treatment to the hospitalist service Dr. Blackmon who I initially discussed the case with. Triage Nursing notes reviewed. Limited review of prior medical records performed Vital Signs: reviewed and remarkable for no significant abnormalities Differential diagnosis: Differential Diagnosis includes but is not limited to ischemic Stroke, hemorrhagic stroke, bells palsy, mass, neoplasm, migraine headache, seizure, subarachnoid hemorrhage, TIA, and transient global amnesia. ER treatment provided: See below Diagnostics interpreted by me include EKG and cardiac monitoring as listed below: -Cardiac Monitoring: An order was placed for continuous cardiac monitoring. The monitor shows a rate of 70 with sinus rhythm. -ECG: Sinus rhythm rate 74 Normal axis No PVCs QTc 428 -Laboratory studies:Interpreted by me as stated above in MDM and shown below. Imaging studies: Xrays: As interpreted by me: Portable AP portable view of the chest shows no focal infiltrate CTs show: CT of the head cervical spine was negative for any acute bleed Consultation(s): As described in MDM Procedures:none Critical Care: None Past Med/Surg History Medical History Bronchitis Chronic pain Diabetes mellitus, type 2 History of colon polyps Hypercholesterolemia Hyperlipidemia Hypertension Hypothyroidism Left leg pain Nonproliferative diabetic retinopathy Osteoarthritis Rosacea Urinary incontinence Surgical History History of colonoscopy History of left breast biopsy History of open reduction and internal fixation (ORIF) procedure History of tonsillectomy History of wisdom tooth extraction S/P skin cancer resection Family History Mother Family hx of colon cancer Colorectal cancer Hypertension Cancer Aunt Family hx of colon cancer Cancer Sister Breast cancer Cancer Father Myocardial infarction Hypertension Heart disease Other No family history of adverse response to anesthesia No family history of bleeding disorder Denies family history of Ovarian cancer Prostate cancer Social History Smoking Status: Never smoker Second Hand Exposure: No (father smoked/1st smoked); Do You Dip or Chew Tobacco: No; Hx Alcohol Use: Yes Alcohol type: wine Alcohol Intake Frequency Comment: socially, once a month or less Hx Substance Use: No Preferred Language: Upper Sorbian Communication Ability: Effective Visual Impairment: No Limitations Hearing Ability: Normal Culinary Chef Required: No Beliefs That Will Affect Care: None Current Living Situation: Alone current occupational status: retired Other Information That Helps Us Care for You: No Feels Safe at Home: Yes Safety Concerns: Feels Safe At This Time Childhood Exposure to Second-Hand Smoke: Yes Dental Care, Regularly: Yes Physical Activity Frequency: Does not Exercise Seatbelt Use: always Assistive Devices: Glasses Allergies Allergies Allergy/AdvReac Type Severity Reaction Status Date / Time Sulfa (Sulfonamide Allergy Severe rash that Verified 03/25/23 11:49 Antibiotics) went into throat Home Meds Home Medications Medication Instructions Recorded Confirmed aspirin 81 mg tablet,delayed 81 mg PO QAM 04/21/19 03/25/23 release (Adult Aspirin Regimen) omeprazole 20 mg capsule,delayed 20 mg PO BID PRN Acid Reflux 02/01/23 03/25/23 release calcium carbonate-vitamin D3 500 1 tab PO BID 03/25/23 03/25/23 mg(1,250 mg)-600 unit chewable tablet hydrochlorothiazide 25 mg tablet 25 mg PO DAILY 03/25/23 03/25/23 levothyroxine 150 mcg tablet 150 mcg PO 5XWK 03/25/23 03/25/23 levothyroxine 75 mcg tablet 75 mcg PO 2XWK 03/25/23 03/25/23 metformin 1,000 mg tablet 1,000 mg PO BID 03/25/23 03/25/23 zinc 50 mg tablet 50 mg PO QAM 03/25/23 03/25/23 Previous Rx's Medication Instructions Recorded clobetasol 0.05 % topical ointment 1 applic topical DAILY PRN vaginal 08/18/21 dryness #15 grams ezetimibe 10 mg tablet (Zetia) 10 mg PO QAM #90 tabs 11/14/22 rosuvastatin 20 mg tablet 20 mg PO QAM #90 tabs 11/14/22 amlodipine 5 mg tablet 5 mg PO QAM #90 tabs 01/29/23 Results & Data (ED) Vital Signs Vital Signs - 24 hr 03/25/23 10:56 03/25/23 11:05 03/25/23 11:31 Temperature 37.1 C Temperature Source Oral Pulse Rate 88 73 Pulse Rate [Apical] 84 Pulse Rate from SpO2 Sensor Pulse Rhythm [Apical] Regular Pulse Strength [Apical] Normal Respiratory Rate 18 18 Respiratory Effort / Characteristics Non-Labored Spontaneous Non-Labored Spontaneous Respiratory Depth Normal Normal Respiratory Pattern Regular Regular Blood Pressure Blood Pressure [Right Arm] 169/91 H Blood Pressure Mean Blood Pressure Mean [Right Arm] 117 Blood Pressure Position [Right Arm] Sitting Pulse Oximetry 96 94 Oxygen Delivery Method Room Air Room Air Sepsis Recent Fever Within 48 Hours No Sepsis New/Unexplained Change in Mental Status N/A Sepsis Action Taken by Nursing No Action Required 03/25/23 11:06 03/25/23 11:06 03/25/23 11:10 Temperature Temperature Source Pulse Rate 78 81 Pulse Rate [Apical] Pulse Rate from SpO2 Sensor 80 Pulse Rhythm [Apical] Pulse Strength [Apical] Respiratory Rate 12 17 Respiratory Effort / Characteristics Respiratory Depth Respiratory Pattern Blood Pressure 169/91 H Blood Pressure [Right Arm] Blood Pressure Mean 102 Blood Pressure Mean [Right Arm] Blood Pressure Position [Right Arm] Pulse Oximetry 99 Oxygen Delivery Method Sepsis Recent Fever Within 48 Hours Sepsis New/Unexplained Change in Mental Status Sepsis Action Taken by Nursing 03/25/23 11:20 03/25/23 11:21 03/25/23 11:21 Temperature Temperature Source Pulse Rate 78 77 Pulse Rate [Apical] Pulse Rate from SpO2 Sensor Pulse Rhythm [Apical] Pulse Strength [Apical] Respiratory Rate 15 17 Respiratory Effort / Characteristics Respiratory Depth Respiratory Pattern Blood Pressure 155/84 H Blood Pressure [Right Arm] Blood Pressure Mean 124 Blood Pressure Mean [Right Arm] Blood Pressure Position [Right Arm] Pulse Oximetry Oxygen Delivery Method Sepsis Recent Fever Within 48 Hours Sepsis New/Unexplained Change in Mental Status Sepsis Action Taken by Nursing 03/25/23 11:29 03/25/23 11:29 03/25/23 11:30 Temperature Temperature Source Pulse Rate 76 Pulse Rate [Apical] Pulse Rate from SpO2 Sensor Pulse Rhythm [Apical] Pulse Strength [Apical] Respiratory Rate 21 Respiratory Effort / Characteristics Respiratory Depth Respiratory Pattern Blood Pressure 161/95 H 159/98 H Blood Pressure [Right Arm] Blood Pressure Mean 107 116 Blood Pressure Mean [Right Arm] Blood Pressure Position [Right Arm] Pulse Oximetry Oxygen Delivery Method Sepsis Recent Fever Within 48 Hours Sepsis New/Unexplained Change in Mental Status Sepsis Action Taken by Nursing 03/25/23 11:30 03/25/23 11:40 03/25/23 11:40 Temperature Temperature Source Pulse Rate 85 74 Pulse Rate [Apical] Pulse Rate from SpO2 Sensor 75 Pulse Rhythm [Apical] Pulse Strength [Apical] Respiratory Rate 18 20 Respiratory Effort / Characteristics Respiratory Depth Respiratory Pattern Blood Pressure 157/85 H Blood Pressure [Right Arm] Blood Pressure Mean 98 Blood Pressure Mean [Right Arm] Blood Pressure Position [Right Arm] Pulse Oximetry 98 Oxygen Delivery Method Sepsis Recent Fever Within 48 Hours Sepsis New/Unexplained Change in Mental Status Sepsis Action Taken by Nursing 03/25/23 11:45 03/25/23 12:00 03/25/23 12:15 Temperature 36.5 C 37.0 C 36.8 C Temperature Source Oral Oral Oral Pulse Rate Pulse Rate [Apical] 78 77 78 Pulse Rate from SpO2 Sensor Pulse Rhythm [Apical] Regular Regular Pulse Strength [Apical] Normal Normal Respiratory Rate 18 18 16 Respiratory Effort / Characteristics Non-Labored Spontaneous Non-Labored Spontaneous Respiratory Depth Normal Normal Respiratory Pattern Regular Regular Blood Pressure Blood Pressure [Right Arm] 170/99 H 153/77 H 141/84 H Blood Pressure Mean Blood Pressure Mean [Right Arm] 122 102 103 Blood Pressure Position [Right Arm] Sitting Sitting Sitting Pulse Oximetry 98 99 97 Oxygen Delivery Method Room Air Room Air Room Air Sepsis Recent Fever Within 48 Hours Sepsis New/Unexplained Change in Mental Status Sepsis Action Taken by Nursing Laboratory Data 03/25/23 10:50 03/25/23 10:50 Lab Results 03/25/23 03/25/23 03/25/23 Range/Units 10:50 10:50 10:50 WBC 5.71 (4.8-10.8) K/ul RBC 4.26 (4.20-5.40) M/uL Hgb 12.8 (12.0-16.0) g/dl Hct 38.2 (37.0-47.0) % MCV 89.7 (80.0-100.0) fL MCH 30.0 (25.0-34.0) pg MCHC 33.5 (32.0-36.0) g/dL RDW Std Deviation 45.2 (36.4-46.3) fL RDW Coeff of Ina 14.0 (11.5-14.5) % Plt Count 232 (130-400) K/uL MPV 10.5 (9.4-12.4) fL Immature Gran % (Auto) 0.2 % Neut % (Auto) 42.6 % Lymph % (Auto) 37.7 % [place] % (Auto) 13.7 % Eos % (Auto) 5.1 % Baso % (Auto) 0.7 % Neut # (Auto) 2.44 (1.40-6.50) K/uL Lymph # (Auto) 2.15 (1.2-3.4) K/uL [place] # (Auto) 0.78 H (0.11-0.59) K/uL Eos # (Auto) 0.29 (0-0.50) K/uL Baso # (Auto) 0.04 (0-0.2) K/uL Immature Gran # (Auto) 0.01 (0.01-0.20) K/uL PT 10.9 (9.0-12.0) Seconds INR 1.0 (0.9-1.1) APTT 24.9 (21.0-31.0) Seconds PTT Ratio 0.9 Sodium 138 (136-145) mmol/L Potassium 3.8 (3.5-5.1) mmol/L Chloride 104 (98-107) mmol/L Carbon Dioxide 27 (21-32) mmol/L Anion Gap 7 (3-11) BUN 25 H (6-23) mg/dl Creatinine 0.89 (0.6-1.2) mg/dl Est Cr Clr Drug Dosing 55.9 ml/min Est GFR ( Amer) 73.0 ml/min Est GFR (Non-Af Amer) 63.0 ml/min BUN/Creatinine Ratio 28.1 H (10-20) Glucose 102 H (70-99(Fasting)) mg/dl Calcium 10.5 H (8.6-10.3) mg/dl Magnesium 1.7 (1.7-2.4) mg/dl Total Bilirubin 0.5 (0.2-1.0) mg/dl AST 29 (13-39) U/L ALT 21 (7-52) U/L Alkaline Phosphatase 55 (34-104) U/L Troponin I High Sens 7.7 (0-14) pg/ml Total Protein 7.3 (6.0-8.3) gm/dl Albumin 4.4 (3.4-5.0) gm/dl Globulin 2.9 (2.5-4.0) gm/dl Albumin/Globulin Ratio 1.5 (0.9-2) Administered Medications Discontinued Medications Tenecteplase 22 mg/ Syringe 4.4 mls @ 52.8 mls/min IV NOW ONE; Protocol Stop: 03/25/23 11:52 Last Admin: 03/25/23 11:38 Dose: 52.8 mls/min Documented By: MATT Co-signed By: HENRY Ioversol (Ioversol 350 Mg 125ml Prefilled Syringe) 120 ml IV ONCE ONE Stop: 03/25/23 10:52 Last Admin: 03/25/23 10:52 Dose: 120 ml Documented By: YUNG Miscellaneous (Stat Iv) 1 each N/A NOW STA Stop: 03/25/23 11:42 Last Admin: 03/25/23 12:48 Dose: Not Given Documented By: MATT Sodium Chloride (Sodium Chloride 0.9% 10ml Flush) 20 ml IV NOW STA Stop: 03/25/23 11:42 Last Admin: 03/25/23 11:47 Dose: 20 ml Documented By: MATT Imaging Data Radiologist's Impression: Chest X-Ray 03/25/23 10:46 XR chest 1V portable CLINICAL HISTORY: neuro deficit, acute stroke suspected TECHNIQUE: Single frontal radiograph of the chest was obtained. Comparison: Comparison is made to chest radiograph 12/29/2019 FINDINGS: No lines and tubes are seen. The cardiomediastinal silhouette is normal. The lungs are clear. No evidence of pleural effusion or pneumothorax. IMPRESSION: No acute chest disease. ACT 112: Negative or not required by law. Electronically signed by: Umberto Alberts M.D. 03/25/2023 1:[address] 03/25/23 10:46 CT angio neck with con, CT head/brain wo con, CT angio head w con CLINICAL HISTORY: neuro deficit, acute stroke suspected TECHNIQUE: Contiguous axial CT images of the head were acquired from the base of the skull to the vertex without intravenous contrast administration. CT angiography of the head and neck was performed following intravenous administration of iodinated contrast. Coronal and sagittal MIPS were obtained from the axial data set and were submitted for review. Automated dose lowering techniques and/or adjustment according to patient size were utilized for this examination. All measurements were calculated based on NASCET criteria. CT DOSE: 1221.07 mGy.cm Comparison: None available at the time of this dictation. FINDINGS: CT head: There is no acute intracranial hemorrhage or evidence of acute territorial infarction. No shift of the midline structures, mass effect, or extra-axial abnormalities are shown. Lungs and soft tissues are unremarkable. CTA Neck: A 3 vessel aortic arch is shown. There is no significant atherosclerotic plaque in the aortic arch or the origins of the innominate, left common carotid, and left subclavian arteries. The common carotid, external carotid, cervical segments of the internal carotid arteries, and the cervical segments of the vertebral arteries are patent without hemodynamically significant stenosis. The left vertebral artery is dominant. CTA Head: The anterior and posterior cerebral circulations are patent. origin of the bilateral posterior cerebral arteries noted. IMPRESSION: 1. No acute intracranial hemorrhage, evidence of acute territorial infarction, or other acute intracranial disease process. 2. No occlusion, hemodynamically significant stenosis, or dissection in the major cervical arteries. 3. No occlusion, hemodynamically significant stenosis, aneurysm, dissection, or arteriovenous malformation in the major intracranial arteries. Assessment of stenosis of the internal carotid arteries is based on NASCET criteria. ACT 112: Negative or not required by law. Electronically signed by: Umberto Alberts M.D. 03/25/2023 11:26 AM Head CTA 03/25/23 10:46 CT angio neck with con, CT head/brain wo con, CT angio head w con CLINICAL HISTORY: neuro deficit, acute stroke suspected TECHNIQUE: Contiguous axial CT images of the head were acquired from the base of the skull to the vertex without intravenous contrast administration. CT angiography of the head and neck was performed following intravenous administration of iodinated contrast. Coronal and sagittal MIPS were obtained from the axial data set and were submitted for review. Automated dose lowering techniques and/or adjustment according to patient size were utilized for this examination. All measurements were calculated based on NASCET criteria. CT DOSE: 1221.07 mGy.cm Comparison: None available at the time of this dictation. FINDINGS: CT head: There is no acute intracranial hemorrhage or evidence of acute territorial infarction. No shift of the midline structures, mass effect, or extra-axial abnormalities are shown. Lungs and soft tissues are unremarkable. CTA Neck: A 3 vessel aortic arch is shown. There is no significant atherosclerotic plaque in the aortic arch or the origins of the innominate, left common carotid, and left subclavian arteries. The common carotid, external carotid, cervical segments of the internal carotid arteries, and the cervical segments of the vertebral arteries are patent without hemodynamically significant stenosis. The left vertebral artery is dominant. CTA Head: The anterior and posterior cerebral circulations are patent. origin of the bilateral posterior cerebral arteries noted. IMPRESSION: 1. No acute intracranial hemorrhage, evidence of acute territorial infarction, or other acute intracranial disease process. 2. No occlusion, hemodynamically significant stenosis, or dissection in the major cervical arteries. 3. No occlusion, hemodynamically significant stenosis, aneurysm, dissection, or arteriovenous malformation in the major intracranial arteries. Assessment of stenosis of the internal carotid arteries is based on NASCET criteria. ACT 112: Negative or not required by law. Electronically signed by: Umberto Alberts M.D. 03/25/2023 11:26 AM Neck CTA 03/25/23 10:46 CT angio neck with con, CT head/brain wo con, CT angio head w con CLINICAL HISTORY: neuro deficit, acute stroke suspected TECHNIQUE: Contiguous axial CT images of the head were acquired from the base of the skull to the vertex without intravenous contrast administration. CT angiography of the head and neck was performed following intravenous administration of iodinated contrast. Coronal and sagittal MIPS were obtained from the axial data set and were submitted for review. Automated dose lowering techniques and/or adjustment according to patient size were utilized for this examination. All measurements were calculated based on NASCET criteria. CT DOSE: 1221.07 mGy.cm Comparison: None available at the time of this dictation. FINDINGS: CT head: There is no acute intracranial hemorrhage or evidence of acute territorial infarction. No shift of the midline structures, mass effect, or extra-axial abnormalities are shown. Lungs and soft tissues are unremarkable. CTA Neck: A 3 vessel aortic arch is shown. There is no significant atherosclerotic plaque in the aortic arch or the origins of the innominate, left common carotid, and left subclavian arteries. The common carotid, external carotid, cervical segments of the internal carotid arteries, and the cervical segments of the vertebral arteries are patent without hemodynamically significant stenosis. The left vertebral artery is dominant. CTA Head: The anterior and posterior cerebral circulations are patent. origin of the bilateral posterior cerebral arteries noted. IMPRESSION: 1. No acute intracranial hemorrhage, evidence of acute territorial infarction, or other acute intracranial disease process. 2. No occlusion, hemodynamically significant stenosis, or dissection in the major cervical arteries. 3. No occlusion, hemodynamically significant stenosis, aneurysm, dissection, or arteriovenous malformation in the major intracranial arteries. Assessment of stenosis of the internal carotid arteries is based on NASCET criteria. ACT 112: Negative or not required by law. Electronically signed by: Umberto Alberts M.D. 03/25/2023 11:26 AM Discharge Plan Visit Data Chief Complaint: TIA Symptoms ED Provider: Kei Garcia Discharge Problem: Acute CVA (cerebrovascular accident), Left arm weakness Patient Disposition: Admitted As Inpatient Discharge Instructions Interventions: ED Discharge Assessment Last Done: 03/25/23 13:27
[2023-03-25] MEDS ORDERED: IOVERSOL 350 MG 125mL Prefilled Syringe IV ONE (10:51)
[2023-03-25 11:18] LABS: Basophils # (auto) 0.04 K/uL (0-0.2); Basophils % (auto) 0.7 %; Eosinophils # (auto) 0.29 K/uL (0-0.50); Eosinophils % (auto) 5.1 %; Hematocrit (blood only) 38.2 % (37.0-47.0); Hemoglobin 12.8 g/dl (12.0-16.0); Immature Granulocytes # (auto) 0.01 K/uL (0.01-0.20); Immature Granulocytes % (auto) 0.2 %; Lymphocytes # (auto) 2.15 K/uL (1.2-3.4); Lymphocytes % (auto) 37.7 %; Mean Corpuscular Hgb Conc 33.5 g/dL (32.0-36.0); Mean Corpuscular Volume 89.7 fL (80.0-100.0); Mean Platelet Volume 10.5 fL (9.4-12.4); Monocytes # (auto) 0.78 K/uL (0.11-0.59); Monocytes % (auto) 13.7 %; Neutrophils # (auto) 2.44 K/uL (1.40-6.50); Neutrophils % (auto) 42.6 %; Platelet Count 232 K/uL (130-400); RDW Standard Deviation 45.2 fL (36.4-46.3); Red Blood Count 4.26 M/uL (4.20-5.40); White Blood Count 5.71 K/ul (4.8-10.8)
--- NOTE | 2023-03-25 11:28 | CT Scan Report ---
CT angio neck with con, CT head/brain wo con, CT angio head w con CLINICAL HISTORY: neuro deficit, acute stroke suspected TECHNIQUE: Contiguous axial CT images of the head were acquired from the base of the skull to the mona radhika without intravenous contrast administration. CT angiography of the head and neck was performed f ollowing intravenous administration of iodinated contrast. Coronal and sagittal MIPS were obtained fr om the axial data set and were submitted for review. Automated dose lowering techniques and/or adjus tment according to patient size were utilized for this examination. All measurements were calculated based on NASCET criteria. CT DOSE: 1221.07 mGy.cm Comparison: None available at the time of this dictation. FINDINGS: CT head: There is no acute intracranial hemorrhage or evidence of acute territorial infarction. No sh ift of the midline structures, mass effect, or extra-axial abnormalities are shown. Lungs and soft tissues are unremarkable. CTA Neck: A 3 vessel aortic arch is shown. There is no significant atherosclerotic plaque in the aor tic arch or the origins of the innominate, left common carotid, and left subclavian arteries. The co mmon carotid, external carotid, cervical segments of the internal carotid arteries, and the cervical segments of the vertebral arteries are patent without hemodynamically significant stenosis. The left vertebral artery is dominant. CTA Head: The anterior and posterior cerebral circulations are patent. origin of the bilateral posterior cerebral arteries noted. IMPRESSION: 1. No acute intracranial hemorrhage, evidence of acute territorial infarction, or other acute intrac ranial disease process. 2. No occlusion, hemodynamically significant stenosis, or dissection in the major cervical arteries. 3. No occlusion, hemodynamically significant stenosis, aneurysm, dissection, or arteriovenous malfor mation in the major intracranial arteries. Assessment of stenosis of the internal carotid arteries is based on NASCET criteria. ACT 112: Negative or not required by law. Electronically signed by: Umberto Alberts M.D. 03/25/2023 11:26 AM
[2023-03-25 11:32] LABS: Albumin Globulin Ratio 1.5 (0.9-2); Albumin Level 4.4 gm/dl (3.4-5.0); BUN Creatinine Ratio 28.1 (10-20); Bilirubin,Total 0.5 mg/dl (0.2-1.0); Calcium 10.5 mg/dl (8.6-10.3); Creatinine Clr Calc Pharmacy 55.9 ml/min; Globulin 2.9 gm/dl (2.5-4.0); Magnesium 1.7 mg/dl (1.7-2.4); Potassium 3.8 mmol/L (3.5-5.1); Total Protein 7.3 gm/dl (6.0-8.3)
[2023-03-25 11:37] LABS: Troponin I High Sensitivity 7.7 pg/ml (0-14)
[2023-03-25] MEDS ORDERED: STAT IV STA (11:41)
[2023-03-25] MEDS ORDERED: SODIUM CHLORIDE 0.9% 10ML FLUSH IV STA (11:41)
[2023-03-25] MEDS ORDERED: No Aspirin within 24hrs of THROMBOLYTIC-Stroke PO SCH (11:45)
[2023-03-25] MEDS ORDERED: TENECTEPLASE 22 MG in SYRINGE 0 ML IV ONE (11:51)
--- NOTE | 2023-03-25 11:52 | History & Physical Report ---
Date of Service March 25, 2023 Assessment & Plan (1) Cerebrovascular accident aborted by administration of thrombolytic agent: Plan: TIA/CVA, post TNKase Risk factors include diabetes mellitus and hypertension. No prior CVA/LA. Strong family history of CAD. Admitting EKG sinus, no history of A-fib. hs-trop normal. No chest pain ABRASIVE SAWYER. Last known well 8AM, presented to the emergency department at 1056 Patient is on aspirin monotherapy ABRASIVE SAWYER for primary prophylaxis. No anticoagulants - CTA-H/N: 1. No acute intracranial hemorrhage, evidence of acute territorial infarction, or other acute intracranial disease process. 2. No occlusion, hemodynamically significant stenosis, or dissection in the major cervical arteries.3. No occlusion, hemodynamically significant stenosis, aneurysm, dissection, or arteriovenous malformation in the major intracranial arteries. MRIbrain pending At home experienced left dominant arm weakness and poor coordination, facial droop, and dysarthria. At ER assessment NIHSS 2, with facial droop and left arm numbness. Admitting assessment pst TNKase NIHSS is 0, no facial droop/sensation asymmetry and 5/5 strength in upper extremities bilaterally On telestroke conference patient was recommended for TNKase administration. Administered at 1138 hrs. Transferred to ICU for postthrombolytic protocol No aspirin, venipuncture within 24 hours. Pt reports she did take low dose aspirin prior to admission 03/25. Post TNKase antihypertensive protocol, labetalol on-call for blood pressure greater than 180/105 Lipid panel pending. If LDL > 70 increase rosuvastatin to 40 Echo with bubble study pending - Neurology consulted Hypertension ABRASIVE SAWYER on amlodipine, hydrochlorothiazide, aspirin. Held, labetelol for BP control for 24 horus for BP >180/105 Hyperlipidemia ABRASIVE SAWYER on rosuvastatin, Zetia. ?Increase of rosuvastatin based on lipids as noted above Hypothyroidism TSH: pending Continue home Synthroid. Takes 150 mcg 5 days a week, 75 mcg Sunday/ Type 2 diabetes mellitus A1C: 6.6% -ICU hyperglycemia protocol GERD - No sx at admit - Protonix 40mg daily added for stress ppx Family history of CAD Stress echo 2019 nondiagnostic due to poor exercise tolerance and hypertensive response, but no overt evidence of ischemia at that time. EF 55-60%. Baseline EKG normal. No anginal symptoms ABRASIVE SAWYER DVT PPx: SCDs. No pharmacoppx post tnkase on admit CODE: FUll Dispo: ICU Diet: HH/DM2 once able to pass bedside swallow eval (2) Stroke-like symptoms: (3) GERD (gastroesophageal reflux disease): (4) Hypercholesterolemia: (5) Hypothyroidism: (6) Hypertension: (7) Diabetes mellitus: History of Present Illness Primary Care Provider: Brianda Obrien MD Bere Escalera is a 77-year-old female with a past medical history of laryngeal pharyngeal reflux disorder, GERD, urinary incontinence, hypercholesterolemia, polyarthritis, hypersomnia, hypothyroidism, hypertension, dysmetabolic syndrome, and diabetes who presents as a stroke alert. Patient was in her normal state of health last night, this morning, and when she was getting ready in the bathroom. She developed acute onset left arm weakness at around 9 AM which was associated with acute onset headache. She also had some unusual spotty vision. She presented to the hospital as a stroke alert. Woke up normal at 8am. Took a nap and woke up again at 9:15 and felt 'woozy and lightheaded at that time.' [place] like things were 'in a little bit of slow motion.' Was washing up in the bathroom and attempting to brush teeth and had trouble using her left arm to brush her teeth and could not maneuvre the toothbrush. +mild headache. She was afraid she was having a stroke so she got dressed and called a friend who lives nearby and that friend felt she was slurring her words. Due to weakness + slurring recommended she call 911, but pt had trouble dialing with her left hand (she is left hand dominant). Dialed with her R hand and then EMS brought her to the hospital as a stroke alert. Endorses poor coordination with her left arm. Could move it, but had trouble with her coordination. 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 NO leg symptoms. - NIHSS 2 points 1x facial droop, 1x diminished sensation on ER arrival. NO hx strokes of [place]. Torn achilles x6 weeks ago, had surgery/repear with Dr. Whyte [place] [facility] [place]. Was on dvt ppx initially for 1 week but doesn't remember what this was. No fhx of CVA. Father had 'a heart condition at 40s, at 58' Takes aspirin daily for primary ppx in the past due to fhx of heart disese and HTN. No hx afib Medical History: Reviewed Medications: Reviewed. Took all medicines except metformin AM 03/25/23 Surgical History: Reviewed Family history: Reviewed Allergies: Reviewed Social History: No history of tobacco prodcut use. Few x per month ETOH use. No rec recreational drug use. Code Status: Full Code. Surrogate sister Duyen, followed by step-daughter Wilman Mckeon. Allergies Allergy/AdvReac Type Severity Reaction Status Date / Time Sulfa (Sulfonamide Allergy Severe rash that Verified 03/25/23 11:49 Antibiotics) went into throat Home Medications Medication Instructions Recorded Confirmed Type aspirin 81 mg tablet,delayed 81 mg PO QAM 04/21/19 03/25/23 History release (Adult Aspirin Regimen) clobetasol 0.05 % topical ointment 1 applic topical DAILY PRN vaginal 08/18/21 03/25/23 Rx dryness #15 grams ezetimibe 10 mg tablet (Zetia) 10 mg PO QAM #90 tabs 11/14/22 03/25/23 Rx rosuvastatin 20 mg tablet 20 mg PO QAM #90 tabs 11/14/22 03/25/23 Rx amlodipine 5 mg tablet 5 mg PO QAM #90 tabs 01/29/23 03/25/23 Rx omeprazole 20 mg capsule,delayed 20 mg PO BID PRN Acid Reflux 02/01/23 03/25/23 History release calcium carbonate-vitamin D3 500 1 tab PO BID 03/25/23 03/25/23 History mg(1,250 mg)-600 unit chewable tablet hydrochlorothiazide 25 mg tablet 25 mg PO DAILY 03/25/23 03/25/23 History levothyroxine 150 mcg tablet 150 mcg PO 5XWK 03/25/23 03/25/23 History levothyroxine 75 mcg tablet 75 mcg PO 2XWK 03/25/23 03/25/23 History metformin 1,000 mg tablet 1,000 mg PO BID 03/25/23 03/25/23 History zinc 50 mg tablet 50 mg PO QAM 03/25/23 03/25/23 History Past Med/Surg History Medical History Bronchitis Chronic pain Diabetes mellitus, type 2 History of colon polyps Hypercholesterolemia Hyperlipidemia Hypertension Hypothyroidism Left leg pain Nonproliferative diabetic retinopathy Osteoarthritis Rosacea Urinary incontinence Surgical History History of colonoscopy History of left breast biopsy History of open reduction and internal fixation (ORIF) procedure History of tonsillectomy History of wisdom tooth extraction S/P skin cancer resection Family History Mother Family hx of colon cancer Colorectal cancer Hypertension Cancer Aunt Family hx of colon cancer Cancer Sister Breast cancer Cancer Father Myocardial infarction Hypertension Heart disease Other No family history of adverse response to anesthesia No family history of bleeding disorder Denies family history of Ovarian cancer Prostate cancer Social History Smoking Status: Never smoker Second Hand Exposure: No (father smoked/1st smoked); Do You Dip or Chew Tobacco: No; Hx Alcohol Use: Yes Alcohol type: wine Alcohol Intake Frequency Comment: socially, once a month or less Hx Substance Use: No Preferred Language: Thai Communication Ability: Effective Visual Impairment: No Limitations Hearing Ability: Normal Superintendent Communications Required: No Beliefs That Will Affect Care: Denominational Denominational Beliefs: Taoism Current Living Situation: Alone current occupational status: retired Feels Safe at Home: Yes Childhood Exposure to Second-Hand Smoke: Yes Dental Care, Regularly: Yes Physical Activity Frequency: Does not Exercise Seatbelt Use: always Assistive Devices: Glasses Review of Systems Review of Systems: All systems reviewed & are unremarkable except as noted in HPI & below Physical Exam Physical Exam: General: A&Ox3. NAD. Cooperative. Tearful intermittently, reports that stroke is very scary to her Pulm: CTAB A&P. -wheezes, -rales, -rhonchi. Symmetrical chest rise. No increased work of breathing. No respiratory distress. Cardiac: RRR, -mrg. Radial pulses intact and symmetrical. Abdominal: Nontender, nondistended, soft. BS present. CRANIAL NERVES: II: Pupils equal and reactive, no relative afferent pupillary defect, no VF cuts III, IV, : EOM intact, no gaze preference or deviation, no nystagmus. V: normal sensation in V1, V2, and V3 segments bilaterally VII: no asymmetry, no nasolabial fold flattening. Cheek puff, eyebrow raise, smile symmetrical at time of admitting assessment VIII: normal hearing to speech IX, X: normal palatal elevation, no uvular deviation XI: 5/5 head turn XII: midline tongue protrusion MOTOR: RUE: 5/5 Shoulder flexion, extension 5/5 Elbow flexion/extension, wrist flexion/extension 5/5 trommel tender strength, finger flexion/extension LUE: 5/5 Shoulder flexion, extension 5/5 Elbow flexion/extension, wrist flexion/extension 5/5 trommel tender strength, finger flexion/extension RLE: 5/5 to hip flexion, knee extension, ankle dorsiflexion/plantarflexion LLE: 5/5 to hip flexion, knee extension, ankle dorsiflexion/plantarflexion REFLEXES: no clonus SENSORY: Normal to touch in upper and lower extremities without deficit or asymmetry COORD: Slightly tremulous through exam, normal finger to nose and heel to geller, no tremor, no dysmetria Results & Data Results & Data Vital Signs (Past 12 Hours) Vital Signs Temp Pulse Pulse Resp BP BP Pulse Ox 03/25/23 11:40 74 20 98 03/25/23 11:40 157/85 H 03/25/23 11:30 85 18 03/25/23 11:30 159/98 H 03/25/23 11:29 76 21 03/25/23 11:29 161/95 H 03/25/23 11:21 77 17 03/25/23 11:21 155/84 H 03/25/23 11:20 78 15 03/25/23 11:10 81 17 99 03/25/23 11:06 78 7 L 03/25/23 11:06 169/91 H 03/25/23 11:31 73 03/25/23 11:05 84 18 169/91 H 94 03/25/23 10:56 37.1 C 88 18 96 O2 Del Method 03/25/23 11:40 03/25/23 11:40 03/25/23 11:30 03/25/23 11:30 03/25/23 11:29 03/25/23 11:29 03/25/23 11:21 03/25/23 11:21 03/25/23 11:20 03/25/23 11:10 03/25/23 11:06 03/25/23 11:06 03/25/23 11:31 03/25/23 11:05 Room Air 03/25/23 10:56 Room Air PG Care Time/CCT Total # of Minutes Spent Total Time Spent with Patient: Total time spent is greater than 50% in coordination of care (as documented) at patient's floor/unit and/or counseling patient: Coding Level of Care Code 31075 INT INP/OBS CARE 3/75MIN Diagnoses Cerebrovascular accident aborted by administration of thrombolytic agent I63.9 Stroke-like symptoms R29.90 GERD (gastroesophageal reflux disease) K21.9 Hypercholesterolemia E78.00 Hypothyroidism E03.9 Hypertension I10 Diabetes mellitus E11.9
[2023-03-25 11:55] LABS: Partial Thromboplastin Ratio 0.9; Partial Thromboplastin Time 24.9 Seconds (21.0-31.0); Prothrombin Time 10.9 Seconds (9.0-12.0)
--- NOTE | 2023-03-25 13:11 | CT Scan Report ---
CT head/brain wo con CLINICAL HISTORY: Worsened LUE sx post TNKase Technique: Contiguous axial CT images of the head were acquired from the base of the skull to the mona radhika without intravenous contrast administration. Images were viewed in brain, subdural and bone windo ws. Automated dose lowering techniques and/or adjustment according to patient size were utilized for this exam. Comparison: Comparison is made to CTA head and neck 03/25/2023 Findings: The ventricles, basal cisterns, and cerebral sulci are normal. There is no acute intracranial hemorrh age or evidence of acute territorial infarction. Neither mass effect, shift of the midline structures , nor abnormal extra-axial fluid collections are shown. Imaged portions of the paranasal sinuses and mastoid air cells are clear. The orbits appear normal. There are no acute fractures of the calvaria or scalp swelling. Impression: No acute intracranial hemorrhage, no evidence of acute territorial infarction or other acute intracra nial disease process. ACT 112: Negative or not required by law. Electronically signed by: Umberto Alberts M.D. 03/25/2023 1:10 PM
--- NOTE | 2023-03-25 13:15 | XRay Report ---
XR chest 1V portable CLINICAL HISTORY: neuro deficit, acute stroke suspected TECHNIQUE: Single frontal radiograph of the chest was obtained. Comparison: Comparison is made to chest radiograph 12/29/2019 FINDINGS: No lines and tubes are seen. The cardiomediastinal silhouette is normal. The lungs are clear. No evid ence of pleural effusion or pneumothorax. IMPRESSION: No acute chest disease. ACT 112: Negative or not required by law. Electronically signed by: Umberto Alberts M.D. 03/25/2023 1:14 PM
[2023-03-25] MEDS ORDERED: PHARMACIST DISCHARGE MED REC CONSULT PRN (13:54)
[2023-03-25] MEDS ORDERED: LABETALOL HCL IV 5 MG/ML 20ML IV PRN (13:54)
[2023-03-25] MEDS: ICU Protocol for HYPERglycemia SCH ×2 (16:02→21:18)
--- NOTE | 2023-03-25 16:21 | Critical Care Consultation ---
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 Status post systemic thrombolysis. Symptoms have improved but are not resolved. Recommendations: 1. Status post TNK administration: Continue to follow in the ICU. Follow-up CT scan at 24 hours to ensure no hemorrhagic confirmation. Will likely need antiplatelet agents. 2. Strokelike symptoms: Initial imaging unremarkable. Await MRI of the brain. Echocardiogram and formal neurology consultation pending. 3. Diabetes: Glycemic control per protocol. 4. Hypertension: Allow for permissive hypertension at this point time and try and keep systolic blood pressures less than 170. 5. Hyperlipidemia: Continue lipid-lowering agents. 6. The patient will require PT OT evaluations. Above recommendations and plan were discussed with patient and critical care nurse. Questions were answered to the best my ability. She expressed understa nding and is in agreement with plan as outlined History of Present Illness Attending Physician: Brian Kelley MD History of Present Illness Asked by hospitalist to assist in evaluation and management of this patient status post TNK administration for strokelike symptoms. History is obtained from review electronic medical record and discussion with the patient. The patient is a 77-year-old female with a history of hypertension diabetes and metabolic syndrome who reported that this morning she had left arm weakness and incoordination. She also had some headache as well as dysarthria. She did not report emergently to the hospital, rather she took a nap and had continued lightheadedness. She called 911 and EMS brought her to the hospital as a stroke alert. She had a telestroke consultation performed with [facility] who recommended administration of systemic thrombolytics. She received TNKase. CT of the head showed no evidence of large vessel obstruction. Her blood pressure was well controlled. Patient denies prior history of seizures. No history of migraine headaches. She is taking aspirin at home. The patient is noted resolution of her dysarthria but is still having some issues with dysmetria of the left upper extremity. Allergies Allergy/AdvReac Type Severity Reaction Status Date / Time Sulfa (Sulfonamide Allergy Severe rash that Verified 03/25/23 11:49 Antibiotics) went into throat Home Medications Medication Instructions Recorded Confirmed Type aspirin 81 mg tablet,delayed 81 mg PO QAM 04/21/19 03/25/23 History release (Adult Aspirin Regimen) clobetasol 0.05 % topical ointment 1 applic topical DAILY PRN vaginal 08/18/21 03/25/23 Rx dryness #15 grams ezetimibe 10 mg tablet (Zetia) 10 mg PO QAM #90 tabs 11/14/22 03/25/23 Rx rosuvastatin 20 mg tablet 20 mg PO QAM #90 tabs 11/14/22 03/25/23 Rx amlodipine 5 mg tablet 5 mg PO QAM #90 tabs 01/29/23 03/25/23 Rx omeprazole 20 mg capsule,delayed 20 mg PO BID PRN Acid Reflux 02/01/23 03/25/23 History release calcium carbonate-vitamin D3 500 1 tab PO BID 03/25/23 03/25/23 History mg(1,250 mg)-600 unit chewable tablet hydrochlorothiazide 25 mg tablet 25 mg PO DAILY 03/25/23 03/25/23 History levothyroxine 150 mcg tablet 150 mcg PO 5XWK 03/25/23 03/25/23 History levothyroxine 75 mcg tablet 75 mcg PO 2XWK 03/25/23 03/25/23 History metformin 1,000 mg tablet 1,000 mg PO BID 03/25/23 03/25/23 History zinc 50 mg tablet 50 mg PO QAM 03/25/23 03/25/23 History Patient History Medical History Bronchitis Chronic pain Diabetes mellitus, type 2 History of colon polyps Hypercholesterolemia Hyperlipidemia Hypertension Hypothyroidism Left leg pain Nonproliferative diabetic retinopathy Osteoarthritis Rosacea Urinary incontinence Surgical History History of colonoscopy History of left breast biopsy History of open reduction and internal fixation (ORIF) procedure History of tonsillectomy History of wisdom tooth extraction S/P skin cancer resection Family History Mother Family hx of colon cancer Colorectal cancer Hypertension Cancer Aunt Family hx of colon cancer Cancer Sister Breast cancer Cancer Father Myocardial infarction Hypertension Heart disease Other No family history of adverse response to anesthesia No family history of bleeding disorder Denies family history of Ovarian cancer Prostate cancer Social History Smoking Status: Never smoker Second Hand Exposure: No (father smoked/1st smoked); Do You Dip or Chew Tobacco: No; Hx Alcohol Use: Yes Alcohol type: wine Alcohol Intake Frequency Comment: socially, once a month or less Hx Substance Use: No Preferred Language: Lao Communication Ability: Effective Visual Impairment: No Limitations Hearing Ability: Normal Chaplain Required: No Beliefs That Will Affect Care: None Current Living Situation: Alone current occupational status: retired Other Information That Helps Us Care for You: No Feels Safe at Home: Yes Safety Concerns: Feels Safe At This Time Childhood Exposure to Second-Hand Smoke: Yes Dental Care, Regularly: Yes Physical Activity Frequency: Does not Exercise Seatbelt Use: always Assistive Devices: Glasses Review of Systems Review of Systems: Please refer to admission H&P. 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 Shoulder shrug is normal. Cranial nerves II through XII normal. Lower extremities normal. Lymphatic: no cervical lymphadenopathy Results & Data Results & Data Vital Signs (Past 12 Hours) Vital Signs Temp Pulse Pulse Resp BP BP Pulse Ox 03/25/23 16:00 69 14 138/78 95 03/25/23 15:30 75 16 142/81 H 98 03/25/23 15:00 76 14 144/71 H 97 03/25/23 14:56 74 03/25/23 14:30 79 14 144/85 H 94 03/25/23 13:54 74 03/25/23 14:00 74 18 143/98 H 97 03/25/23 13:45 36.4 C L 78 18 151/84 H 98 03/25/23 13:51 36.4 C L 78 20 151/84 H 96 03/25/23 13:30 72 18 153/73 H 98 03/25/23 13:15 75 18 145/81 H 95 03/25/23 13:05 75 16 161/92 H 97 03/25/23 12:45 87 20 150/79 H 98 03/25/23 12:30 36.5 C 75 18 159/91 H 99 03/25/23 12:15 36.8 C 78 16 141/84 H 97 03/25/23 12:00 37.0 C 77 18 153/77 H 99 03/25/23 11:45 36.5 C 78 18 170/99 H 98 03/25/23 11:40 74 20 98 03/25/23 11:40 157/85 H 03/25/23 11:30 85 18 03/25/23 11:30 159/98 H 03/25/23 11:29 76 21 03/25/23 11:29 161/95 H 03/25/23 11:21 77 17 03/25/23 11:21 155/84 H 03/25/23 11:20 78 15 03/25/23 11:10 81 17 99 03/25/23 11:06 78 12 03/25/23 11:06 169/91 H 03/25/23 11:31 73 03/25/23 11:05 84 18 169/91 H 94 03/25/23 10:56 37.1 C 88 18 96 O2 Del Method 03/25/23 16:00 Room Air 03/25/23 15:30 Room Air 03/25/23 15:00 Room Air 03/25/23 14:56 03/25/23 14:30 Room Air 03/25/23 13:54 03/25/23 14:00 Room Air 03/25/23 13:45 Room Air 03/25/23 13:51 Room Air 03/25/23 13:30 Room Air 03/25/23 13:15 Room Air 03/25/23 13:05 Room Air 03/25/23 12:45 Room Air 03/25/23 12:30 Room Air 03/25/23 12:15 Room Air 03/25/23 12:00 Room Air 03/25/23 11:45 Room Air 03/25/23 11:40 03/25/23 11:40 03/25/23 11:30 03/25/23 11:30 03/25/23 11:29 08/13/23 11:29 03/25/23 11:21 03/25/23 11:21 03/25/23 11:20 03/25/23 11:10 03/25/23 11:06 03/25/23 11:06 03/25/23 11:31 03/25/23 11:05 Room Air 03/25/23 10:56 Room Air Critical Care Results & Data Vital Signs (Past 12 Hours) Vital Signs Temp Pulse Pulse Resp BP BP Pulse Ox 03/25/23 16:00 69 14 138/78 95 03/25/23 15:30 75 16 142/81 H 98 03/25/23 15:00 76 14 144/71 H 97 03/25/23 14:56 74 03/25/23 14:30 79 14 144/85 H 94 03/25/23 13:54 74 03/25/23 14:00 74 18 143/98 H 97 03/25/23 13:45 36.4 C L 78 18 151/84 H 98 03/25/23 13:51 36.4 C L 78 20 151/84 H 96 03/25/23 13:30 72 18 153/73 H 98 03/25/23 13:15 75 18 145/81 H 95 03/25/23 13:05 75 16 161/92 H 97 03/25/23 12:45 87 20 150/79 H 98 03/25/23 12:30 36.5 C 75 18 159/91 H 99 03/25/23 12:15 36.8 C 78 16 141/84 H 97 03/25/23 12:00 37.0 C 77 18 153/77 H 99 03/25/23 11:45 36.5 C 78 18 170/99 H 98 03/25/23 11:40 74 20 98 03/25/23 11:40 157/85 H 03/25/23 11:30 85 18 03/25/23 11:30 159/98 H 03/25/23 11:29 76 21 03/25/23 11:29 161/95 H 03/25/23 11:21 77 17 03/25/23 11:21 155/84 H 03/25/23 11:20 78 15 03/25/23 11:10 81 17 99 03/25/23 11:06 78 12 03/25/23 11:06 169/91 H 03/25/23 11:31 73 03/25/23 11:05 84 18 169/91 H 94 03/25/23 10:56 37.1 C 88 18 96 O2 Del Method 03/25/23 16:00 Room Air 03/25/23 15:30 Room Air 03/25/23 15:00 Room Air 03/25/23 14:56 03/25/23 14:30 Room Air 03/25/23 13:54 03/25/23 14:00 Room Air 03/25/23 13:45 Room Air 03/25/23 13:51 Room Air 03/25/23 13:30 Room Air 03/25/23 13:15 Room Air 03/25/23 13:05 Room Air 03/25/23 12:45 Room Air 03/25/23 12:30 Room Air 03/25/23 12:15 Room Air 03/25/23 12:00 Room Air 03/25/23 11:45 Room Air 03/25/23 11:40 03/25/23 11:40 03/25/23 11:30 03/25/23 11:30 03/25/23 11:29 03/25/23 11:29 03/25/23 11:21 03/25/23 11:21 03/25/23 11:20 03/25/23 11:10 03/25/23 11:06 03/25/23 11:06 03/25/23 11:31 03/25/23 11:05 Room Air 03/25/23 10:56 Room Air Lab & Micro Results (Past 24 Hours) RBC 4.26 M/uL (4.20-5.40) 03/25/23 WBC 5.71 K/ul (4.8-10.8) 03/25/23 Hgb 12.8 g/dl (12.0-16.0) 03/25/23 Hct 38.2 % (37.0-47.0) 03/25/23 MCV 89.7 fL (80.0-100.0) 03/25/23 MCH 30.0 pg (25.0-34.0) 03/25/23 MCHC 33.5 g/dL (32.0-36.0) 03/25/23 RDW Standard Deviation 45.2 fL (36.4-46.3) 03/25/23 RDW Coefficient of Variation 14.0 % (11.5-14.5) 03/25/23 Plt Count 232 K/uL (130-400) 03/25/23 MPV 10.5 fL (9.4-12.4) 03/25/23 Neutrophils (%) (Auto) 42.6 % 03/25/23 Lymphocytes (%) (Auto) 37.7 % 03/25/23 Monocytes # (Auto) 0.78 K/uL (0.11-0.59) H 03/25/23 Eosinophils # (Auto) 0.29 K/uL (0-0.50) 03/25/23 Immature Granulocyte % (Auto) 0.2 % 03/25/23 Neutrophils # (Auto) 2.44 K/uL (1.40-6.50) 03/25/23 Lymphocytes # (Auto) 2.15 K/uL (1.2-3.4) 03/25/23 Monocytes # (Auto) 0.78 K/uL (0.11-0.59) H 03/25/23 Eosinophils # (Auto) 0.29 K/uL (0-0.50) 03/25/23 Basophils # (Auto) 0.04 K/uL (0-0.2) 03/25/23 Immature Granulocyte # (Auto) 0.01 K/uL (0.01-0.20) 3 Na 138 mmol/L (136-145) 03/25/23 K 3.8 mmol/L (3.5-5.1) 03/25/23 Cl 104 mmol/L (98-107) 03/25/23 CO2 27 mmol/L (21-32) 03/25/23 Anion Gap 7 (3-11) 03/25/23 BUN 25 mg/dl (6-23) H 03/25/23 Creatinine 0.89 mg/dl (0.6-1.2) 03/25/23 Estimated GFR ( Amer) 73.0 ml/min 03/25/23 Estimated GFR (Non-Af Amer) 63.0 ml/min 03/25/23 BUN/Creatinine Ratio 28.1 (10-20) H 03/25/23 Glu 102 mg/dl (70-99(Fasting)) H 03/25/23 Ca 10.5 mg/dl (8.6-10.3) H 03/25/23 Total Bilirubin 0.5 mg/dl (0.2-1.0) 03/25/23 AST 29 U/L (13-39) 03/25/23 ALT 21 U/L (7-52) 03/25/23 Alkaline Phosphatase 55 U/L (34-104) 03/25/23 TP 7.3 gm/dl (6.0-8.3) 03/25/23 Albumin 4.4 gm/dl (3.4-5.0) 03/25/23 Globulin 2.9 gm/dl (2.5-4.0) 03/25/23 Albumin/Globulin Ratio 1.5 (0.9-2) 03/25/23 Mg 1.7 mg/dl (1.7-2.4) 03/25/23 10:50 Calcium Level 10.5 mg/dl (8.6-10.3) H 03/25/23 10:50 Prothromb Time International Ratio 1.0 (0.9-1.1) 03/25/23 10:5 0 Diagnostic Findings (Past 24 Hours) Chest X-Ray 03/25/23 10:46 XR chest 1V portable CLINICAL HISTORY: neuro deficit, acute stroke suspected TECHNIQUE: Single frontal radiograph of the chest was obtained. Comparison: Comparison is made to chest radiograph 12/29/2019 FINDINGS: No lines and tubes are seen. The cardiomediastinal silhouette is normal. The lungs are clear. No evidence of pleural effusion or pneumothorax. IMPRESSION: No acute chest disease. ACT 112: Negative or not required by law. Electronically signed by: Umberto Alberts M.D. 03/25/2023 1:[address] 03/25/23 10:46 CT angio neck with con, CT head/brain wo con, CT angio head w con CLINICAL HISTORY: neuro deficit, acute stroke suspected TECHNIQUE: Contiguous axial CT images of the head were acquired from the base of the skull to the vertex without intravenous contrast administration. CT angiography of the head and neck was performed following intravenous administration of iodinated contrast. Coronal and sagittal MIPS were obtained from the axial data set and were submitted for review. Automated dose lowering techniques and/or adjustment according to patient size were utilized for this examination. All measurements were calculated based on NASCET criteria. CT DOSE: 1221.07 mGy.cm Comparison: None available at the time of this dictation. FINDINGS: CT head: There is no acute intracranial hemorrhage or evidence of acute territorial infarction. No shift of the midline structures, mass effect, or extra-axial abnormalities are shown. Lungs and soft tissues are unremarkable. CTA Neck: A 3 vessel aortic arch is shown. There is no significant atherosclerotic plaque in the aortic arch or the origins of the innominate, left common carotid, and left subclavian arteries. The common carotid, external carotid, cervical segments of the internal carotid arteries, and the cervical segments of the vertebral arteries are patent without hemodynamically significant stenosis. The left vertebral artery is dominant. CTA Head: The anterior and posterior cerebral circulations are patent. origin of the bilateral posterior cerebral arteries noted. IMPRESSION: 1. No acute intracranial hemorrhage, evidence of acute territorial infarction, or other acute intracranial disease process. 2. No occlusion, hemodynamically significant stenosis, or dissection in the major cervical arteries. 3. No occlusion, hemodynamically significant stenosis, aneurysm, dissection, or arteriovenous malformation in the major intracranial arteries. Assessment of stenosis of the internal carotid arteries is based on NASCET criteria. ACT 112: Negative or not required by law. Electronically signed by: Umberto Alberts M.D. 03/25/2023 11:26 AM Head CTA 03/25/23 10:46 CT angio neck with con, CT head/brain wo con, CT angio head w con CLINICAL HISTORY: neuro deficit, acute stroke suspected TECHNIQUE: Contiguous axial CT images of the head were acquired from the base of the skull to the vertex without intravenous contrast administration. CT angiography of the head and neck was performed following intravenous administration of iodinated contrast. Coronal and sagittal MIPS were obtained from the axial data set and were submitted for review. Automated dose lowering techniques and/or adjustment according to patient size were utilized for this examination. All measurements were calculated based on NASCET criteria. CT DOSE: 1221.07 mGy.cm Comparison: None available at the time of this dictation. FINDINGS: CT head: There is no acute intracranial hemorrhage or evidence of acute territorial infarction. No shift of the midline structures, mass effect, or extra-axial abnormalities are shown. Lungs and soft tissues are unremarkable. CTA Neck: A 3 vessel aortic arch is shown. There is no significant atherosclerotic plaque in the aortic arch or the origins of the innominate, left common carotid, and left subclavian arteries. The common carotid, external carotid, cervical segments of the internal carotid arteries, and the cervical segments of the vertebral arteries are patent without hemodynamically significant stenosis. The left vertebral artery is dominant. CTA Head: The anterior and posterior cerebral circulations are patent. origin of the bilateral posterior cerebral arteries noted. IMPRESSION: 1. No acute intracranial hemorrhage, evidence of acute territorial infarction, or other acute intracranial disease process. 2. No occlusion, hemodynamically significant stenosis, or dissection in the major cervical arteries. 3. No occlusion, hemodynamically significant stenosis, aneurysm, dissection, or arteriovenous malformation in the major intracranial arteries. Assessment of stenosis of the internal carotid arteries is based on NASCET criteria. ACT 112: Negative or not required by law. Electronically signed by: Umberto Alberts M.D. 03/25/2023 11:26 AM Neck CTA 03/25/23 10:46 CT angio neck with con, CT head/brain wo con, CT angio head w con CLINICAL HISTORY: neuro deficit, acute stroke suspected TECHNIQUE: Contiguous axial CT images of the head were acquired from the base of the skull to the vertex without intravenous contrast administration. CT angiography of the head and neck was performed following intravenous administration of iodinated contrast. Coronal and sagittal MIPS were obtained from the axial data set and were submitted for review. Automated dose lowering techniques and/or adjustment according to patient size were utilized for this examination. All measurements were calculated based on NASCET criteria. CT DOSE: 1221.07 mGy.cm Comparison: None available at the time of this dictation. FINDINGS: CT head: There is no acute intracranial hemorrhage or evidence of acute territorial infarction. No shift of the midline structures, mass effect, or extra-axial abnormalities are shown. Lungs and soft tissues are unremarkable. CTA Neck: A 3 vessel aortic arch is shown. There is no significant atherosclerotic plaque in the aortic arch or the origins of the innominate, left common carotid, and left subclavian arteries. The common carotid, external carotid, cervical segments of the internal carotid arteries, and the cervical segments of the vertebral arteries are patent without hemodynamically significant stenosis. The left vertebral artery is dominant. CTA Head: The anterior and posterior cerebral circulations are patent. origin of the bilateral posterior cerebral arteries noted. IMPRESSION: 1. No acute intracranial hemorrhage, evidence of acute territorial infarction, or other acute intracranial disease process. 2. No occlusion, hemodynamically significant stenosis, or dissection in the major cervical arteries. 3. No occlusion, hemodynamically significant stenosis, aneurysm, dissection, or arteriovenous malformation in the major intracranial arteries. Assessment of stenosis of the internal carotid arteries is based on NASCET criteria. ACT 112: Negative or not required by law. Electronically signed by: Umberto Alberts M.D. 03/25/2023 11:[address] 03/25/23 12:54 CT head/brain wo con CLINICAL HISTORY: Worsened LUE sx post TNKase Technique: Contiguous axial CT images of the head were acquired from the base of the skull to the vertex without intravenous contrast administration. Images were viewed in brain, subdural and bone windows. Automated dose lowering techniques and/or adjustment according to patient size were utilized for this exam. Comparison: Comparison is made to CTA head and neck 03/25/2023 Findings: The ventricles, basal cisterns, and cerebral sulci are normal. There is no acute intracranial hemorrhage or evidence of acute territorial infarction. Neither mass effect, shift of the midline structures, nor abnormal extra-axial fluid collections are shown. Imaged portions of the paranasal sinuses and mastoid air cells are clear. The orbits appear normal. There are no acute fractures of the calvaria or scalp swelling. Impression: No acute intracranial hemorrhage, no evidence of acute territorial infarction or other acute intracranial disease process. ACT 112: Negative or not required by law. Electronically signed by: Umberto Alberts M.D. 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
--- NOTE | 2023-03-25 22:03 | Magnetic Resonance Report ---
MR brain wo con CLINICAL HISTORY: CVA eval TECHNIQUE: Multiplanar and multisequence MR images of the brain were obtained without intravenous con trast. Comparison: Comparison is made to CT head 03/25/2023 FINDINGS: A few foci of restricted diffusion are seen in the superior medial right frontal lobe. The white matter is unremarkable. The ventricular system is normal in appearance. No mass is seen. There is no mass effect or midline shift. There is no evidence of acute intraparenchymal hemorrhage. No ext ra axial fluid collections are seen. The corpus callosum, pituitary gland, and cerebellar tonsils ronal ear grossly unremarkable. Flow voids of the major intracranial arterial vessels are identified. The imaged portions of the para nasal sinuses, mastoid air cells, and orbits are unremarkable. Hyperostosis frontalis is incidentally noted. IMPRESSION: A few foci of restricted diffusion are seen in the right frontal lobe compatible with infarct. No mj dence of hemorrhage in this patient who has already received TNK. ACT 112: Negative or not required by law. Electronically signed by: Umberto Alberts M.D. 03/25/2023 10:01 PM
[2023-03-26 06:06] LABS: Basophils # (auto) 0.04 K/uL (0-0.2); Basophils % (auto) 0.6 %; Eosinophils # (auto) 0.21 K/uL (0-0.50); Eosinophils % (auto) 3.1 %; Hematocrit (blood only) 35.8 % (37.0-47.0); Hemoglobin 12.3 g/dl (12.0-16.0); Immature Granulocytes # (auto) 0.01 K/uL (0.01-0.20); Immature Granulocytes % (auto) 0.1 %; Lymphocytes # (auto) 2.43 K/uL (1.2-3.4); Lymphocytes % (auto) 36.4 %; Mean Corpuscular Hemoglobin 30.7 pg (25.0-34.0); Mean Corpuscular Hgb Conc 34.4 g/dL (32.0-36.0); Mean Corpuscular Volume 89.3 fL (80.0-100.0); Mean Platelet Volume 10.2 fL (9.4-12.4); Monocytes # (auto) 0.98 K/uL (0.11-0.59); Monocytes % (auto) 14.7 %; Neutrophils % (auto) 45.1 %; Platelet Count 216 K/uL (130-400); RDW Coefficient of Variation 13.9 % (11.5-14.5); RDW Standard Deviation 45.6 fL (36.4-46.3); Red Blood Count 4.01 M/uL (4.20-5.40); White Blood Count 6.67 K/ul (4.8-10.8)
[2023-03-26 06:16] LABS: BUN Creatinine Ratio 24.5 (10-20); Calcium 9.8 mg/dl (8.6-10.3); Chol HDL Ratio 2.5 (0-5); Creatinine Clr Calc Pharmacy 49.6 ml/min; Est GFR (African American) 64.9 ml/min; Potassium 3.7 mmol/L (3.5-5.1)
[2023-03-26] MEDS ORDERED: LEVOTHYROXINE SODIUM 150 MCG TABLET PO SCH (06:30)
--- NOTE | 2023-03-26 07:21 | Hospitalist Progress Note ---
Date of Service March 26, 2023 Assessment & Plan (1) Cerebrovascular accident aborted by administration of thrombolytic agent: Plan: At home experienced left dominant arm weakness and poor coordination, facial droop, and dysarthria; now still with some residual left hand weakness but resolution in other deficits CVA noted on MRI Brain, right frontal lobe, s/p TNKase [address] without hemorrhage, downgraded from ICU Continue DAPT x3 weeks, then Plavix alone LDL <70 continue rosuvastatin/ezetimibe Echo with bubble study without evidence of intraarterial shunt Neurology consulted and appreciate recommendations, for follow up in 2-3 weeks in office (2) GERD (gastroesophageal reflux disease): Plan: - No sx at admit - Protonix 40mg daily added for stress ppx (3) Hypercholesterolemia: Plan: LINING SETTER on rosuvastatin, Zetia, LDL <70, continue current regimen (4) Hypothyroidism: Plan: TSH: pending Continue home Synthroid. Takes 150 mcg 5 days a week, 75 mcg Sunday/ (5) Hypertension: Plan: LINING SETTER on amlodipine, hydrochlorothiazide, both held for now, resume in the next 24 hours if BP allowable (6) Diabetes mellitus: Plan: A1C: 6.6% Basal/bolus insulin, adjust as necessary Plan PT and OT evaluations in place Admission and Anticipated Discharge Date Admission Date: March 25, 2023 Subjective Overnight with some improvement in left hand weakness and speech difficulty, still with difficulty grasping things like her utensils, but speech is definitely better. She denies headache, chest pain, SOB. Physical Exam Constitutional: WD/WN, vitals as above Respiratory: normal respiratory effort, lungs clear to auscultation Cardiovascular: RRR, no murmur, no edema Gastrointestinal (Abdomen): normal bowel sounds, soft, nontender, no hepatosplenomegaly Skin: no rashes, warm and dry Neurologic: left hand decreased handgrip normal speech Psychiatric: A+Ox3, euthymic affect Results & Data Results & Data Vital Signs (Past 12 Hours) Vital Signs Temp Pulse Pulse Resp BP BP Pulse Ox 03/26/23 06:00 59 L 18 145/67 H 94 03/26/23 05:00 58 L 13 117/56 L 95 03/25/23 19:30 72 18 120/58 L 92 03/26/23 04:00 36.7 C 59 L 21 117/56 L 92 03/26/23 03:00 36.7 C 59 L 16 114/57 L 90 03/26/23 04:18 36.7 C 03/26/23 02:00 37.1 C 59 L 15 111/55 L 90 03/26/23 02:00 65 17 89 L 03/26/23 02:00 129/63 03/26/23 01:00 66 22 89 L 03/26/23 01:00 116/53 L 03/26/23 00:00 66 17 88 L 03/26/23 00:00 138/63 03/25/23 23:00 71 9 L 92 03/25/23 23:00 111/51 L 03/26/23 01:00 37.1 C 64 16 129/63 91 03/25/23 23:10 81 03/26/23 00:00 37.1 C 68 24 133/63 90 03/25/23 23:00 37.1 C 67 18 133/63 90 03/25/23 22:00 78 20 92 03/25/23 22:00 141/83 H 03/25/23 21:00 74 19 92 03/25/23 21:00 144/78 H 03/25/23 20:00 76 18 93 03/25/23 20:00 133/76 03/25/23 22:00 37.1 C 75 21 126/65 92 03/25/23 21:00 37.1 C 77 19 126/65 92 03/25/23 20:00 36.7 C 74 21 134/70 92 03/25/23 19:30 79 19 95 03/25/23 19:30 134/70 O2 Del Method 03/26/23 06:00 Room Air 03/26/23 05:00 Room Air 03/25/23 19:30 Room Air 03/26/23 04:00 Room Air 03/26/23 03:00 Room Air 03/26/23 04:18 03/26/23 02:00 Room Air 03/26/23 02:00 03/26/23 02:00 03/26/23 01:00 03/26/23 01:00 03/26/23 00:00 03/26/23 00:00 03/25/23 23:00 03/25/23 23:00 03/26/23 01:00 Room Air 03/25/23 23:10 03/26/23 00:00 Room Air 03/25/23 23:00 Room Air 03/25/23 22:00 03/25/23 22:00 03/25/23 21:00 03/25/23 21:00 03/25/23 20:00 03/25/23 20:00 03/25/23 22:00 Room Air 03/25/23 21:00 Room Air 03/25/23 20:00 Room Air 03/25/23 19:30 03/25/23 19:30 PG Care Time/CCT Total # of Minutes Spent Total Time Spent with Patient: Total time spent is greater than 50% in coordination of care (as documented) at patient's floor/unit and/or counseling patient: Coding Level of Care Code 30716 SUB INP/OBS CARE 3/50MIN Diagnoses Cerebrovascular accident aborted by administration of thrombolytic agent I63.9 GERD (gastroesophageal reflux disease) K21.9 Hypercholesterolemia E78.00 Hypothyroidism E03.9 Hypertension I10 Diabetes mellitus E11.9
[2023-03-26] MEDS: ICU Protocol for HYPERglycemia SCH ×3 (07:50→14:28)
--- NOTE | 2023-03-26 09:22 | Critical Care Progress Note ---
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 Status post systemic thrombolysis. Symptoms have improved but are not resolved. Recommendations: 1. Status post TNK administration: 2. Cerebrovascular accident 3. Diabetes: Glycemic control per protocol. 4. Hypertension: Restart antihypertensives 5. Hyperlipidemia: Continue lipid-lowering agents. 6. The patient will require PT OT evaluations. Patient stable for downgrade out of ICU. Admission and Anticipated Discharge Date Admission Date: March 25, 2023 Subjective Patient feels much improved since admission. Reports that she lives alone hoping that she will be able to get into skilled rehab as she does not feel that she will be able to function with her activities of daily living. Review of Systems Review of Systems: No chest pain no dizziness Results & Data Results & Data Vital Signs (Past 12 Hours) Vital Signs Temp Pulse Pulse Resp BP BP Pulse Ox 03/26/23 09:00 70 20 139/73 93 03/26/23 08:00 70 19 130/65 92 03/26/23 07:00 62 16 127/72 90 03/26/23 06:00 59 L 18 145/67 H 94 03/26/23 05:00 58 L 13 117/56 L 95 03/26/23 04:00 36.7 C 59 L 21 117/56 L 92 03/26/23 03:00 36.7 C 59 L 16 114/57 L 90 03/26/23 04:18 36.7 C 03/26/23 02:00 37.1 C 59 L 15 111/55 L 90 03/26/23 02:00 65 17 89 L 03/26/23 02:00 129/63 03/26/23 01:00 66 22 89 L 03/26/23 01:00 116/53 L 03/26/23 00:00 66 17 88 L 03/26/23 00:00 138/63 03/25/23 23:00 71 9 L 92 03/25/23 23:00 111/51 L 03/26/23 01:00 37.1 C 64 16 129/63 91 03/25/23 23:10 81 03/26/23 00:00 37.1 C 68 24 133/63 90 03/25/23 23:00 37.1 C 67 18 133/63 90 03/25/23 22:00 78 20 92 03/25/23 22:00 141/83 H 03/25/23 22:00 37.1 C 75 21 126/65 92 O2 Del Method 03/26/23 09:00 Room Air 03/26/23 08:00 Room Air 03/26/23 07:00 Room Air 03/26/23 06:00 Room Air 03/26/23 05:00 Room Air 03/26/23 04:00 Room Air 03/26/23 03:00 Room Air 03/26/23 04:18 03/26/23 02:00 Room Air 03/26/23 02:00 03/26/23 02:00 03/26/23 01:00 03/26/23 01:00 03/26/23 00:00 03/26/23 00:00 03/25/23 23:00 03/25/23 23:00 03/26/23 01:00 Room Air 03/25/23 23:10 03/26/23 00:00 Room Air 03/25/23 23:00 Room Air 03/25/23 22:00 03/25/23 22:00 03/25/23 22:00 Room Air Critical Care Results & Data Vital Signs (Past 12 Hours) Vital Signs Temp Pulse Pulse Resp BP BP Pulse Ox 03/26/23 14:00 74 20 129/74 96 03/26/23 13:00 79 03/26/23 12:00 79 23 92 03/26/23 12:00 148/69 H 03/26/23 11:00 73 19 95 03/26/23 11:00 146/83 H 03/26/23 10:00 80 17 94 03/26/23 09:00 71 20 93 03/26/23 09:00 139/73 03/26/23 08:00 76 22 92 03/26/23 08:00 130/65 03/26/23 07:00 62 16 90 03/26/23 07:00 127/72 03/26/23 12:00 80 20 148/69 H 92 03/26/23 11:00 36.9 C 76 19 146/83 H 93 03/26/23 10:00 36.9 C 80 17 140/75 95 03/26/23 08:00 03/26/23 08:00 75 03/26/23 09:00 36.8 C 70 20 139/73 93 03/26/23 08:00 36.8 C 70 19 130/65 92 03/26/23 07:00 36.8 C 62 16 127/72 90 03/26/23 06:00 59 L 18 145/67 H 94 03/26/23 05:00 58 L 13 117/56 L 95 03/26/23 04:00 36.7 C 59 L 21 117/56 L 92 03/26/23 03:00 36.7 C 59 L 16 114/57 L 90 03/26/23 04:18 36.7 C O2 Del Method 03/26/23 14:00 Room Air 03/26/23 13:00 03/26/23 12:00 03/26/23 12:00 03/26/23 11:00 03/26/23 11:00 03/26/23 10:00 03/26/23 09:00 03/26/23 09:00 03/26/23 08:00 03/26/23 08:00 03/26/23 07:00 03/26/23 07:00 03/26/23 12:00 Room Air 03/26/23 11:00 Room Air 03/26/23 10:00 Room Air 03/26/23 08:00 Room Air 03/26/23 08:00 03/26/23 09:00 Room Air 03/26/23 08:00 Room Air 03/26/23 07:00 Room Air 03/26/23 06:00 Room Air 03/26/23 05:00 Room Air 03/26/23 04:00 Room Air 03/26/23 03:00 Room Air 03/26/23 04:18 Lab & Micro Results (Past 24 Hours) RBC 4.01 M/uL (4.20-5.40) L 03/26/23 WBC 6.67 K/ul (4.8-10.8) 03/26/23 Hgb 12.3 g/dl (12.0-16.0) 03/26/23 Hct 35.8 % (37.0-47.0) L 03/26/23 MCV 89.3 fL (80.0-100.0) 03/26/23 MCH 30.7 pg (25.0-34.0) 03/26/23 MCHC 34.4 g/dL (32.0-36.0) 03/26/23 RDW Standard Deviation 45.6 fL (36.4-46.3) 03/26/23 RDW Coefficient of Variation 13.9 % (11.5-14.5) 03/26/23 Plt Count 216 K/uL (130-400) 03/26/23 MPV 10.2 fL (9.4-12.4) 03/26/23 Neutrophils (%) (Auto) 45.1 % 03/26/23 Lymphocytes (%) (Auto) 36.4 % 03/26/23 Monocytes # (Auto) 0.98 K/uL (0.11-0.59) H 03/26/23 Eosinophils # (Auto) 0.21 K/uL (0-0.50) 03/26/23 Immature Granulocyte % (Auto) 0.1 % 03/26/23 Neutrophils # (Auto) 3.00 K/uL (1.40-6.50) 03/26/23 Lymphocytes # (Auto) 2.43 K/uL (1.2-3.4) 03/26/23 Monocytes # (Auto) 0.98 K/uL (0.11-0.59) H 03/26/23 Eosinophils # (Auto) 0.21 K/uL (0-0.50) 03/26/23 Basophils # (Auto) 0.04 K/uL (0-0.2) 03/26/23 Immature Granulocyte # (Auto) 0.01 K/uL (0.01-0.20) 3 Na 140 mmol/L (136-145) 03/26/23 K 3.7 mmol/L (3.5-5.1) 03/26/23 Cl 104 mmol/L (98-107) 03/26/23 CO2 30 mmol/L (21-32) 03/26/23 Anion Gap 6 (3-11) 03/26/23 BUN 24 mg/dl (6-23) H 03/26/23 Creatinine 0.98 mg/dl (0.6-1.2) 03/26/23 Estimated GFR ( Amer) 64.9 ml/min 03/26/23 Estimated GFR (Non-Af Amer) 56.0 ml/min 03/26/23 BUN/Creatinine Ratio 24.5 (10-20) H 03/26/23 Glu 112 mg/dl (70-99(Fasting)) H 03/26/23 Ca 9.8 mg/dl (8.6-10.3) 03/26/23 Calcium Level 9.8 mg/dl (8.6-10.3) 03/26/23 05:46 Diagnostic Findings (Past 24 Hours) Brain MRI 03/25/23 13:54 MR brain wo con CLINICAL HISTORY: CVA eval TECHNIQUE: Multiplanar and multisequence MR images of the brain were obtained without intravenous contrast. Comparison: Comparison is made to CT head 03/25/2023 FINDINGS: A few foci of restricted diffusion are seen in the superior medial right frontal lobe. The white matter is unremarkable. The ventricular system is normal in appearance. No mass is seen. There is no mass effect or midline shift. There is no evidence of acute intraparenchymal hemorrhage. No extra axial fluid collections are seen. The corpus callosum, pituitary gland, and cerebellar tonsils appear grossly unremarkable. Flow voids of the major intracranial arterial vessels are identified. The imaged portions of the paranasal sinuses, mastoid air cells, and orbits are unremarkab le. Hyperostosis frontalis is incidentally noted. IMPRESSION: A few foci of restricted diffusion are seen in the right frontal lobe compatible with infarct. No evidence of hemorrhage in this patient who has already received TNK. ACT 112: Negative or not required by law. Electronically signed by: Umberto Alberts M.D. 03/25/2023 10:[address] 03/26/23 12:00 CT head/brain wo con CLINICAL HISTORY: s/p tpa Technique: Contiguous axial CT images of the head were acquired from the base of the skull to the vertex without intravenous contrast administration. Images were viewed in brain, subdural and bone windows. Automated dose lowering techniques and/or adjustment according to patient size were utilized for this exam. Comparison: Comparison is made to CT head 03/25/2023 Findings: The ventricles, basal cisterns, and cerebral sulci are normal. There is no acute intracranial hemorrhage or evidence of acute territorial infarction. Neither mass effect, shift of the midline structures, nor abnormal extra-axial fluid collections are shown. Imaged portions of the paranasal sinuses and mastoid air cells are clear. The orbits appear normal. There are no acute fractures of the calvaria or scalp swelling. Impression: No acute intracranial hemorrhage, no evidence of acute territorial infarction or other acute intracranial disease process. ACT 112: Negative or not required by law. Electronically signed by: Umberto Alberts M.D. 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
--- NOTE | 2023-03-26 09:24 | Neurology Consultation ---
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 Stroke risk factors for this patient include diabetes mellitus, hypertension, and hypercholesterolemia. No known history of atrial fibrillation although she did endorse some palpitations the day prior to her presentation. She has been taking daily baby aspirin as an outpatient, rosuvastatin, ezetimibe, antihypertensives, and metformin. Follow-up results of repeat CT of the head to be completed 24 hours after administration of TNKase. Would also recommend a transthoracic echocardiogram with bubble study. Would recommend dual antiplatelet therapy, clopidogrel 75 mg daily, and aspirin 81 mg daily beginning 24 hours after administration of TNKase, assuming no evidence of hemorrhagic transformation on follow-up CT of the head. Would plan for 3 weeks of dual antiplatelet therapy, followed by discontinuation of aspirin, and continuation of clopidogrel 75 mg daily thereafter. Would also recommend 30-day mobile cardiac outpatient telemetry. If cardiac monitoring does reveal evidence of atrial fibrillation, would then recommend anticoagulation with Eliquis and follow-up with cardiology. May allow for permissive hypertension, systolic blood pressure 140 to 160 mmHg. Otherwise, avoid aggressive pharmacologic reduction in blood pressure. Long- term blood pressure goal less than 130/80 mmHg. Continue with rosuvastatin for management of hypercholesterolemia, LDL goal 70 or less. Continue medical management of diabetes mellitus, hemoglobin A1c from this past January was 6.6 indicating good control. Follow-up with results of more recent hemoglobin A1c. Consultations with PT/OT/speech therapy. Patient may follow-up with myself or an MEGHA in neurology clinic in 2 to 3 weeks after discharge. History of Present Illness Reason for Consultation: stroke Requesting Physician: Dr. Kelley Attending Physician: Shira Rowland DO History of Present Illness The patient is a 77-year-old left-handed female who presented to the emergency department yesterday morning for acute onset left hand weakness and associated s peech difficulty beginning acutely at about 9 AM. She was hypertensive, blood pressure 169/91 and had a normal sinus rhythm on ECG. A CT of the head including CT angiogram of the head and neck were unremarkable, no evidence of hemorrhage, acute or subacute infarct, or vascular lesion identified. She did have a telestroke consultation and was administered TNKase. Her left hand weakness has persisted this morning. Her speech difficulty has resolved. She currently denies headache, vertigo or dizziness, or other focal neurological symptoms. She did have a brain MRI completed which revealed several foci of restricted diffusion within the right MCA territory compatible with acute infarct. I did independently review these images. Past medical history is notable for diabetes mellitus, hypertension, and hypercholesterolemia. She is a non-smoker. Hemoglobin A1c from January 24, 2023 was 6.6. A lipid panel was completed today. Triglycerides 155, cholesterol 122, LDL 43, VLDL 31, HDL 48. Patient denies a prior history of stroke or TIA. She did endorse experiencing some palpitations the day prior to her presentation, but otherwise, no known history of cardiac arrhythmia. Allergies Allergy/AdvReac Type Severity Reaction Status Date / Time Sulfa (Sulfonamide Allergy Severe rash that Verified 03/25/23 11:49 Antibiotics) went into throat Home Medications Medication Instructions Recorded Confirmed Type aspirin 81 mg tablet,delayed 81 mg PO QAM 04/21/19 03/25/23 History release (Adult Aspirin Regimen) clobetasol 0.05 % topical ointment 1 applic topical DAILY PRN vaginal 08/18/21 03/25/23 Rx dryness #15 grams ezetimibe 10 mg tablet (Zetia) 10 mg PO QAM #90 tabs 11/14/22 03/25/23 Rx rosuvastatin 20 mg tablet 20 mg PO QAM #90 tabs 11/14/22 03/25/23 Rx amlodipine 5 mg tablet 5 mg PO QAM #90 tabs 01/29/23 03/25/23 Rx omeprazole 20 mg capsule,delayed 20 mg PO BID PRN Acid Reflux 02/01/23 03/25/23 History release calcium carbonate-vitamin D3 500 1 tab PO BID 03/25/23 03/25/23 History mg(1,250 mg)-600 unit chewable tablet hydrochlorothiazide 25 mg tablet 25 mg PO DAILY 03/25/23 03/25/23 History levothyroxine 150 mcg tablet 150 mcg PO [id number] 03/25/23 03/25/23 History levothyroxine 75 mcg tablet 75 mcg PO 2XWK 03/25/23 03/25/23 History metformin 1,000 mg tablet 1,000 mg PO BID 03/25/23 03/25/23 History zinc 50 mg tablet 50 mg PO QAM 03/25/23 03/25/23 History Patient History Medical History Bronchitis Chronic pain Diabetes mellitus, type 2 History of colon polyps Hypercholesterolemia Hyperlipidemia Hypertension Hypothyroidism Left leg pain Nonproliferative diabetic retinopathy Osteoarthritis Rosacea Urinary incontinence Surgical History History of colonoscopy History of left breast biopsy History of open reduction and internal fixation (ORIF) procedure History of tonsillectomy History of wisdom tooth extraction S/P skin cancer resection Family History Mother Family hx of colon cancer Colorectal cancer Hypertension Cancer Aunt Family hx of colon cancer Cancer Sister Breast cancer Cancer Father Myocardial infarction Hypertension Heart disease Other No family history of adverse response to anesthesia No family history of bleeding disorder Denies family history of Ovarian cancer Prostate cancer Social History Smoking Status: Never smoker Second Hand Exposure: No (father smoked/1st smoked); Do You Dip or Chew Tobacco: No; Hx Alcohol Use: Yes Alcohol type: wine Alcohol Intake Frequency Comment: socially, once a month or less Hx Substance Use: No Preferred Language: Nepali Communication Ability: Effective Visual Impairment: No Limitations Hearing Ability: Normal First Coat Sander Required: No Beliefs That Will Affect Care: None Current Living Situation: Alone current occupational status: retired Other Information That Helps Us Care for You: No Feels Safe at Home: Yes Safety Concerns: Feels Safe At This Time Childhood Exposure to Second-Hand Smoke: Yes Dental Care, Regularly: Yes Physical Activity Frequency: Does not Exercise Seatbelt Use: always Assistive Devices: Glasses Review of Systems Constitutional: no fever and no chills Eyes: no blind spots and no diplopia Ear, Nose, Mouth, Throat: no hearing loss Respiratory: no cough and no dyspnea Cardiovascular: as per Subjective / HPI and + palpitations; no chest pain Gastrointestinal: no nausea and no vomiting Genitourinary: no urinary incontinence Musculoskeletal: no neck pain and no myalgia Integumentary: no rash and no lesions Neurologic: as per Subjective / HPI and + localized weakness; no tremor(s), no confusion and no memory loss Psychiatric: no depression and no anxiety Hematologic / Lymphatic: no easy bleeding and no easy bruising Exam (Neuro) Constitutional: well developed and well nourished; no acute distress Eyes: normal visual palencia by confrontation, PERRL and EOM intact bilaterally Cardiovascular: Vessels: no carotid bruit Neurologic: Oriented to:: Person, Place and Time Memory: Short Term Intact and Remote Intact Attention: Span Intact and Concentration Intact Speech Fluency: negative Dysarthria or Dysfluency Speech Aphasia: negative Aphasia Fund of Knowledge: Current Events, Past History and Vocabulary Cranial Nerves: Normal II, III, IV, , V, VIII, IX, X, XI and XII; Abnorm VII (Very mild left lower facial weakness observed) Motor Strength: Normal Lower Ext remities; negative Normal Upper Extremities (Mild to moderate weakness of the left hand noted with decreased facility) Motor Tone: Normal Lower Extremities and Normal Upper Extremities Muscle Bulk/Involuntary Movements: No Involuntary Movements; negative Muscle Atrophy Sensation: Light Touch Intact, Pain/Temperature Intact, Vibration Intact and Proprioception Intact Coordination: Finger-Nose Abnormal Laterality: Left; negative Dysdiadochokinesia or Heel-Posada Abnormal Deep Tendon Reflexes: Rt Triceps: 2+, Lt Triceps: 2+, Rt Biceps: 2+, Lt Biceps: 2+, Rt Brachioradialis: 2+, Lt Brachioradialis: 2+, Rt Patellar: 2+, Lt Patellar: 2+, Rt Ankle: 1+ and Lt Ankle: 1+ Special Tests: negative Babinski Present Details: Gait cannot be tested Results & Data Vital Signs (Past 12 Hours) Vital Signs Temp Pulse Pulse Resp BP BP Pulse Ox 03/26/23 07:00 62 16 127/72 90 03/26/23 06:00 59 L 18 145/67 H 94 03/26/23 05:00 58 L 13 117/56 L 95 03/26/23 04:00 36.7 C 59 L 21 117/56 L 92 03/26/23 03:00 36.7 C 59 L 16 114/57 L 90 03/26/23 04:18 36.7 C 03/26/23 02:00 37.1 C 59 L 15 111/55 L 90 03/26/23 02:00 65 17 89 L 03/26/23 02:00 129/63 03/26/23 01:00 66 22 89 L 03/26/23 01:00 116/53 L 03/26/23 00:00 66 17 88 L 03/26/23 00:00 138/63 03/25/23 23:00 71 9 L 92 03/25/23 23:00 111/51 L 03/26/23 01:00 37.1 C 64 16 129/63 91 03/25/23 23:10 81 03/26/23 00:00 37.1 C 68 24 133/63 90 03/25/23 23:00 37.1 C 67 18 133/63 90 03/25/23 22:00 78 20 92 03/25/23 22:00 141/83 H 03/25/23 21:00 74 19 92 03/25/23 21:00 144/78 H 03/25/23 22:00 37.1 C 75 21 126/65 92 03/25/23 21:00 37.1 C 77 19 126/65 92 O2 Del Method 03/26/23 07:00 Room Air 03/26/23 06:00 Room Air 03/26/23 05:00 Room Air 03/26/23 04:00 Room Air 03/26/23 03:00 Room Air 03/26/23 04:18 03/26/23 02:00 Room Air 03/26/23 02:00 03/26/23 02:00 03/26/23 01:00 03/26/23 01:00 03/26/23 00:00 03/26/23 00:00 03/25/23 23:00 03/25/23 23:00 03/26/23 01:00 Room Air 03/25/23 23:10 03/26/23 00:00 Room Air 03/25/23 23:00 Room Air 03/25/23 22:00 03/25/23 22:00 03/25/23 21:00 03/25/23 21:00 03/25/23 22:00 Room Air 03/25/23 21:00 Room Air PG Care Time/CCT Total # of Minutes Spent Total Time Spent with Patient: Total time spent is greater than 50% in coordination of care (as documented) at patient's floor/unit and/or counseling patient: Coding Level of Care Code 70483 INT INP/OBS CARE MIN Diagnoses Acute CVA (cerebrovascular accident) I63.9 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
[2023-03-26] MEDS ORDERED: PHARMACIST DISCHARGE MED REC CONSULT PRN (09:49)
[2023-03-26] MEDS: ROSUVASTATIN CALCIUM 20 MG TAB PO SCH (09:54)
[2023-03-26] MEDS: EZETIMIBE 10 MG TAB PO SCH (09:54)
[2023-03-26 10:34] LABS: Estimated Average Glucose 143 mg/dl; Hemoglobin A1C 6.6 % (4.5-5.6)
--- NOTE | 2023-03-26 10:55 | Pharmacy Report ---
- Date of Service March 26, 2023 - Pharmacy CVA/TIA Medication Review Medications to Prevent Stroke handout has been added to the patients discharge packet. Antiplatelet(s) * Asa 81 mg + Clopidogrel 75 mg daily x 3 weeks, then clopidogrel monotherapy recommended to start [address] Cholesterol * High intensity statin: rosuvastatin 20 mg daily DVT Prophylaxis * SCD knee Therapeutic Anticoagulation * No history of Afib/Aflutter noted, however, 30 day cardiac monitoring recommended by neurology to further assess Type 2 Diabetes * Patient has T2DM, with a recent A1c 6.6%, a diabetes medication with proven CVD benefit will be deferred to their outpatient provider due to familiarity with risks/benefits of such therapies. "Medications to prevent stroke" handout has already been added to the patient's discharge packet, which instructs the patient to follow up with their outpatient provider to evaluate which diabetes medication with proven CVD benefit is best for them
--- NOTE | 2023-03-26 11:50 | XCELERA ---
[id number] \\[id number]
--- NOTE | 2023-03-26 12:36 | CT Scan Report ---
CT head/brain wo con CLINICAL HISTORY: s/p tpa Technique: Contiguous axial CT images of the head were acquired from the base of the skull to the mona radhika without intravenous contrast administration. Images were viewed in brain, subdural and bone [facility]. Automated dose lowering techniques and/or adjustment according to patient size were utilized for this exam. Comparison: Comparison is made to CT head 03/25/2023 Findings: The ventricles, basal cisterns, and cerebral sulci are normal. There is no acute intracranial hemorrh age or evidence of acute territorial infarction. Neither mass effect, shift of the midline structures , nor abnormal extra-axial fluid collections are shown. Imaged portions of the paranasal sinuses and mastoid air cells are clear. The orbits appear normal. There are no acute fractures of the calvaria or scalp swelling. Impression: No acute intracranial hemorrhage, no evidence of acute territorial infarction or other acute intracra nial disease process. ACT 112: Negative or not required by law. Electronically signed by: Umberto Alberts M.D. 03/26/2023 12:35 PM
--- NOTE | 2023-03-26 14:02 | Electrocardiogram Report ---
Test Reason : Blood Pressure : / mmHG Vent. Rate : 074 BPM Atrial Rate : 074 BPM P-R Int : 194 ms QRS Dur : 086 ms QT Int : 386 ms P-R-T Axes : 055 000 049 degrees QTc Int : 428 ms Normal sinus rhythm Normal ECG When compared with ECG of 24-JAN-2023 13:37, (unconfirmed) No significant change was found Confirmed by Lefty Villagomez ([id number]) on 03/26/2023 2:01:53 PM Referred By: REFERRED SELF Confirmed By:Lefty Villagomez
[2023-03-26] MEDS ORDERED: GLUCOSE 10 TAB/TUBE PO PRN (14:54)
[2023-03-26] MEDS ORDERED: CARBOHYDRATES FOR HYPOGLYCEMIA PO PRN (14:54)
[2023-03-26] MEDS ORDERED: GLUCOSE 40% GEL 15 GM TUBE PO PRN (14:54)
[2023-03-26] MEDS ORDERED: GLUCAGON FOR INJ 1 MG VIAL SQ PRN (14:54)
[2023-03-26] MEDS ORDERED: DEXTROSE 50% 50 ML SYRINGE IV PRN (14:54)
[2023-03-26] MEDS: ASPIRIN 81 MG ECTAB PO SCH (16:11)
[2023-03-26] MEDS: CLOPIDOGREL BISULFATE 75 MG TAB PO SCH (16:11)
[2023-03-26] MEDS: INSULIN ASPART PER UNIT CHARGE SC SCH ×2 (16:41→19:38)
[2023-03-27] MEDS ORDERED: LEVOTHYROXINE SODIUM 75 MCG TABLET PO SCH (06:30)
[2023-03-27 07:14] LABS: Basophils # (auto) 0.06 K/uL (0-0.2); Basophils % (auto) 0.7 %; Eosinophils # (auto) 0.27 K/uL (0-0.50); Eosinophils % (auto) 3.2 %; Hematocrit (blood only) 41.1 % (37.0-47.0); Hemoglobin 13.7 g/dl (12.0-16.0); Immature Granulocytes # (auto) 0.01 K/uL (0.01-0.20); Immature Granulocytes % (auto) 0.1 %; Lymphocytes # (auto) 3.53 K/uL (1.2-3.4); Lymphocytes % (auto) 41.8 %; Mean Corpuscular Hemoglobin 29.7 pg (25.0-34.0); Mean Corpuscular Hgb Conc 33.3 g/dL (32.0-36.0); Mean Corpuscular Volume 89.2 fL (80.0-100.0); Mean Platelet Volume 10.4 fL (9.4-12.4); Monocytes # (auto) 1.06 K/uL (0.11-0.59); Monocytes % (auto) 12.5 %; Neutrophils # (auto) 3.52 K/uL (1.40-6.50); Neutrophils % (auto) 41.7 %; Platelet Count 284 K/uL (130-400); RDW Coefficient of Variation 14.1 % (11.5-14.5); RDW Standard Deviation 45.3 fL (36.4-46.3); Red Blood Count 4.61 M/uL (4.20-5.40); White Blood Count 8.45 K/ul (4.8-10.8)
[2023-03-27 07:33] LABS: BUN Creatinine Ratio 28.4 (10-20); Calcium 10.1 mg/dl (8.6-10.3); Creatinine Clr Calc Pharmacy 48.4 ml/min; Est GFR (African American) 61.9 ml/min; Est GFR (Non-African American) 53.4 ml/min; Potassium 3.7 mmol/L (3.5-5.1)
--- NOTE | 2023-03-27 07:44 | Discharge Summary ---
Discharge Summary Date of Service March 27, 2023 Admission HPI Per Admitting Provider Bere Escalera is a 77-year-old female with a past medical history of laryngeal pharyngeal reflux disorder, GERD, urinary incontinence, hypercholesterolemia, polyarthritis, hypersomnia, hypothyroidism, hypertension, dysmetabolic syndrome, and diabetes who presents as a stroke alert. Patient was in her normal state of health last night, this morning, and when she was getting ready in the bathroom. She developed acute onset left arm weakness at around 9 AM which was associated with acute onset headache. She also had some unusual spotty vision. She presented to the hospital as a stroke alert. Woke up normal at 8am. Took a nap and woke up again at 9:15 and felt 'woozy and lightheaded at that time.' Vail like things were 'in a little bit of slow motion.' Was washing up in the bathroom and attempting to brush teeth and had trouble using her left arm to brush her teeth and could not maneuvre the toothbrush. +mild headache. She was afraid she was having a stroke so she got dressed and called a friend who lives nearby and that friend felt she was slurring her words. Due to weakness + slurring recommended she call 911, but pt had trouble dialing with her left hand (she is left hand dominant). Dialed with her R hand and then EMS brought her to the hospital as a stroke alert. Endorses poor coordination with her left arm. Could move it, but had trouble wit h her coordination. Endorses mild weakness in the L arm and poor coordination. NO leg symptoms. - NIHSS 2 points 1x facial droop, 1x diminished sensation on ER arrival. NO hx strokes of [place]. Torn achilles x6 weeks ago, had surgery/repear with Dr. Whyte at [facility] [place]. Was on dvt ppx initially for 1 week but doesn't remember what this was. No fhx of CVA. Father had 'a heart condition at 40s, at 58' Takes aspirin daily for primary ppx in the past due to fhx of heart disese and HTN. No hx afib Medical History: Reviewed Medications: Reviewed. Took all medicines except metformin AM 03/25/23 Surgical History: Reviewed Family history: Reviewed Allergies: Reviewed Social History: No history of tobacco prodcut use. Few x per month ETOH use. No rec recreational drug use. Code Status: Full Code. Surrogate sister Duyen, followed by step-daughter Wilman Mckeon. Admission Exam Per Admitting Provider General: A&Ox3. NAD. Cooperative. Tearful intermittently, reports that stroke is very scary to her Pulm: CTAB A&P. -wheezes, -rales, -rhonchi. Symmetrical chest rise. No increased work of breathing. No respiratory distress. Cardiac: RRR, -mrg. Radial pulses intact and symmetrical. Abdominal: Nontender, nondistended, soft. BS present. CRANIAL NERVES: II: Pupils equal and reactive, no relative afferent pupillary defect, no VF cuts III, IV, : EOM intact, no gaze preference or deviation, no nystagmus. V: normal sensation in V1, V2, and V3 segments bilaterally VII: no asymmetry, no nasolabial fold flattening. Cheek puff, eyebrow raise, smile symmetrical at time of admitting assessment VIII: normal hearing to speech IX, X: normal palatal elevation, no uvular deviation XI: 5/5 head turn XII: midline tongue protrusion MOTOR: RUE: 5/5 Shoulder flexion, extension 5/5 Elbow flexion/extension, wrist flexi on/extension 5/5 shipping checker strength, finger flexion/extens ion LUE: 5/5 Shoulder flexion, extension 5/5 Elbow flexion/extension, wrist flexi on/extension 5/5 shipping checker strength, finger flexion/extens ion RLE: 5/5 to hip flexion, knee extension, ankl e dorsiflexion/plantarflexion LLE: 5/5 to hip flexion, knee extension, ankl e dorsiflexion/plantarflexion REFLEXES: no clonus SENSORY: Normal to touch in upper and lower extremities without deficit or asymmetry COORD: Slightly tremulous through exam, normal finger to nose and heel to geller, no tremor, no dysmetria Principal Dx & Hospital Course #1 = Principal Diagnosis (1) Cerebrovascular accident aborted by administration of thrombolytic agent: At home experienced left dominant arm weakness and poor coordination, facial droop, and dysarthria; now still with some residual left hand weakness but resolution in other deficits CVA noted on MRI Brain, right frontal lobe, s/p TNKase [address] without hemorrhage Continue DAPT x3 weeks, then Plavix alone LDL <70 therefore continue rosuvastatin/ezetimibe Echo with bubble study without evidence of intraarterial shunt Neurology consulted and appreciate recommendations, for follow up in 2-3 weeks in office To have 30 day monitor arranged to eval for AFib (no evidence of while admitted) (2) GERD (gastroesophageal reflux disease): - No sx this admission (3) Hypercholesterolemia: [employer] on rosuvastatin, Zetia, LDL <70, continue current regimen (4) Hypothyroidism: TSH: pending Continue home Synthroid. Takes 150 mcg 5 days a week, 75 mcg Sunday/ (5) Hypertension: - resume home BP meds (6) Diabetes mellitus: A1C: 6.6% - follow up with PCP, A1c at goal for age Plan PT and OT evaluations in place, for home with home health Discharge Exam Constitutional WD/WN, vitals as above Neurologic no dysarthria, no facial droop some decreased left hand shipping checker and fine motor function compared to right however improved today from yesterday Psychiatric A+Ox3, euthymic affect Updated Medication List Medication Instructions Recorded Confirmed Type aspirin 81 mg tablet,delayed 81 mg PO QAM 04/21/19 03/25/23 History release (Adult Aspirin Regimen) clobetasol 0.05 % topical ointment 1 applic topical DAILY PRN vaginal 08/18/21 03/25/23 Rx dryness #15 grams ezetimibe 10 mg tablet (Zetia) 10 mg PO QAM #90 tabs 11/14/22 03/25/23 Rx rosuvastatin 20 mg tablet 20 mg PO QAM #90 tabs 11/14/22 03/25/23 Rx amlodipine 5 mg tablet 5 mg PO QAM #90 tabs 01/29/23 03/25/23 Rx omeprazole 20 mg capsule,delayed 20 mg PO BID PRN Acid Reflux 02/01/23 03/25/23 History release calcium carbonate-vitamin D3 500 1 tab PO BID 03/25/23 03/25/23 History mg(1,250 mg)-600 unit chewable tablet hydrochlorothiazide 25 mg tablet 25 mg PO DAILY 03/25/23 03/25/23 History levothyroxine 150 mcg tablet 150 mcg PO 5XWK 03/25/23 03/25/23 History levothyroxine 75 mcg tablet 75 mcg PO 2XWK 03/25/23 03/25/23 History metformin 1,000 mg tablet 1,000 mg PO BID 03/25/23 03/25/23 History zinc 50 mg tablet 50 mg PO QAM 03/25/23 03/25/23 History clopidogrel 75 mg tablet 75 mg PO DAILY 30 days #30 tabs 03/27/23 Rx Hospital Stay Data Consultations 03/25/23 11:47 ED Decision to Admit Stat 03/25/23 13:54 Consult Wellness Rn Routine Consult Neurology Routine Diagnostic Imagining Performed 03/25/23 10:46 CT angio head w con Stat CT angio neck with con Stat CT head/brain wo con Stat 03/25/23 12:54 CT head/brain wo con Stat 03/25/23 13:54 MR brain wo con Routine 03/26/23 12:00 CT head/brain wo con Urgent Discharge Instructions Given to Patient (Per Discharging Provider) You were admitted to the hospital for evaluation and management of a left-sided stroke. You were found to have an acute stroke on your brain MRI. Fortunately, after receiving the clot Buster medication, your stroke symptoms improved. You will have ongoing physical and occupational therapy in order to work on your left hand strength. We did make the addition of a medication called Plavix or clopidogrel. This is a medication that works together with aspirin to decrease clotting in the brain. For 3 weeks, you will take both aspirin and Plavix, and then after that 3 weeks is up you will stop the aspirin and continue with Plavix alone. None of your other home medications were changed. You will have follow-up with neurology and with your family doctor, please call the neurologist's office if you do not hear from them for an appointment by Sunday. Total Time Total Time Spent Total Time Spent (In Minutes): 35 min Coding Level of Care Code 74297 INP/OBS DISCH >30 MIN Diagnoses Cerebrovascular accident aborted by administration of thrombolytic agent I63.9 GERD (gastroesophageal reflux disease) K21.9 Hypercholesterolemia E78.00 Hypothyroidism E03.9 Hypertension I10 Diabetes mellitus E11.9
[2023-03-27] MEDS: CLOPIDOGREL BISULFATE 75 MG TAB PO SCH (08:17)
[2023-03-27] MEDS: ROSUVASTATIN CALCIUM 20 MG TAB PO SCH (08:17)
[2023-03-27] MEDS: EZETIMIBE 10 MG TAB PO SCH (08:17)
[2023-03-27] MEDS: ASPIRIN 81 MG ECTAB PO SCH (08:17)
[2023-03-27] MEDS: INSULIN ASPART PER UNIT CHARGE SC SCH ×2 (08:19→12:24)
[2023-03-27] MEDS ORDERED: amLODIPine BESYLATE 5 MG TAB PO SCH (09:00)
[2023-03-27] MEDS ORDERED: STROKE PATIENT DISCHARGE STA (13:21)
--- NOTE | 2023-03-28 11:36 | Pharmacy Report ---
Pharmacist Stroke Counseling - Date of Service March 28, 2023 - Scope: Pharmacy has been consulted to provide medication discharge counseling for this patient admitted with ischemic stroke as per the Pharmacist Discharge Counseling for Stroke Patients Protocol. - Medications on Discharge: Home Medications Medication Instructions Recorded Confirmed omeprazole 20 mg capsule,delayed 20 mg PO BID PRN Acid Reflux 02/01/23 03/28/23 release calcium carbonate-vitamin D3 500 1 tab PO BID 03/25/23 03/28/23 mg(1,250 mg)-600 unit chewable tablet hydrochlorothiazide 25 mg tablet 25 mg PO DAILY 03/25/23 03/28/23 levothyroxine 150 mcg tablet 150 mcg PO 5XWK 03/25/23 03/28/23 levothyroxine 75 mcg tablet 75 mcg PO 2XWK 03/25/23 03/28/23 metformin 1,000 mg tablet 1,000 mg PO BID 03/25/23 03/28/23 zinc 50 mg tablet 50 mg PO QAM 03/25/23 03/28/23 aspirin 81 mg tablet,delayed 81 mg PO QAM 03/28/23 03/28/23 release (Adult Aspirin Regimen) Medication Instructions Recorded clobetasol 0.05 % topical ointment 1 applic topical DAILY PRN vaginal 08/18/21 dryness #15 grams ezetimibe 10 mg tablet (Zetia) 10 mg PO QAM #90 tabs 11/14/22 rosuvastatin 20 mg tablet 20 mg PO QAM #90 tabs 11/14/22 amlodipine 5 mg tablet 5 mg PO QAM #90 tabs 01/29/23 clopidogrel 75 mg tablet 75 mg PO DAILY 30 days #30 tabs 03/27/23 - Action: The above medications, specifically ones for stroke treatment/prophylaxis, have been reviewed in detail with the patient via phone post discharge. This includes indication, common adverse reactions, drug interactions, and medication administration. Medication counseling has been employed using the teach-back method to ensure understanding. - Outcome: The patient has demonstrated understanding of the medications. She was able to brain picker new Rx for Plavix when she was discharged yesterday, patient has 3 weeks of her pills sorted in pill boxes, and will then discontinue Aspirin after the 3 weeks of AIRAM. Thank you for allowing pharmacy to be involved in the care of this patient. Please call [phone] with any additional questions
== END 2023-03-27 15:11 | disposition home health service (06) | DRG 63 ==
LOC: ED 10:39 → SUATTDRO 12:21 → 1E 12:21 → 2S 03-26 19:00